=== PATIENT | female | born 1945 | race Caucasian/White ===

== ENCOUNTER 2016-08-31 19:02 | Inpatient (IN) | payer MEDICARE, BC ==
[~2016-08-31] VITALS: Ht 162.6 cm; Wt 79.4 kg
[2016-08-31] MEDS ORDERED: AMIO200T PO (19:14)
[2016-08-31] MEDS ORDERED: ASPI81CH CHEW (19:14)
[2016-08-31] MEDS ORDERED: LISI40TA PO (19:14)
[2016-08-31] MEDS ORDERED: ATOR20TA15 PO (19:14)
[2016-08-31] MEDS ORDERED: CHLO25TA2 PO (19:14)
[2016-08-31 19:15] VITALS: BP 115/68; PULSE 106; RESP 24; TEMP 99.2; O2SAT 94
[2016-08-31] MEDS ORDERED: SODIUM CHLOR 0.9% 1000 ML INJ 1,000 ML IV SCH (19:30)
[2016-08-31] MEDS ORDERED: LANTUS2P SQ (19:31)
--- NOTE | 2016-08-31 19:32 | PD ---
HPI Chief Complaint: General Weakness Time Seen by Provider: 19:17 Travel History International Travel<30 days: No Contact w/Intl Traveler<30days: No Traveled to known affect area: No History of Present Illness HPI 71-year-old female complains of generalized malaise and weakness, poor appetite , cough fever chills. Patient states that the symptoms started a week ago. Patient denies any headache. Patient denies any visual change. Patient denies any neck pain. Patient states that the cough is mild intermittent dry cough. Patient denies any chest pain or shortness of breath. Patient denies abdominal pain. Patient states that she has intermittent nausea vomiting. Patient denies any dysuria or frequency. Patient denies any vaginal discharge or bleeding. Patient denies any back pain. Patient has history hypertension, diabetes, dyslipidemia. Patient is a nonsmoker. Patient states that she had poor appetite for the past week. Patient has history of atrial fibrillation. 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 PFSH Social History Tobacco Use: No Allergies-Medications (Allergen,Severity, Reaction): Coded Allergies: Reglan (Verified Allergy, Intermediate, 08/31/16) Reported Meds & Prescriptions Reported Meds & Active Scripts Active Reported Lantus Inj (Insulin Glargine) 1,000 Unit/10 Ml Vial 18 Units SQ HS Chlorthalidone 25 Mg Tab 25 Mg PO DAILY Amiodarone (Amiodarone HCl) 200 Mg Tab 200 Mg PO DAILY Lisinopril 40 Mg Tab 40 Mg PO DAILY Atorvastatin (Atorvastatin Calcium) 20 Mg Tab 20 Mg PO HS Aspirin 81 Mg Chew 81 Mg CHEW DAILY Review of Systems General / Constitutional: Positive: Fever, Chills Eyes: No: Visual changes HENT: No: Headaches Cardiovascular: No: Chest Pain or Discomfort Respiratory: Positive: Cough, No: Shortness of Breath Gastrointestinal: No: Abdominal Pain Genitourinary: No: Dysuria Musculoskeletal: No: Pain Skin: No Rash Neurologic: No: Weakness Psychiatric: No: Depression Endocrine: No: Polydipsia Hematologic/Lymphatic: No: Easy Bruising Physical Exam Narrative GENERAL: Well-nourished, well-developed patient. SKIN: Warm and dry. HEAD: Normocephalic. EYES: No scleral icterus. No injection or drainage. NECK: Supple, trachea midline. No JVD or lymphadenopathy. CARDIOVASCULAR: Irregularly irregular rate and rhythm without murmurs, gallops, or rubs. RESPIRATORY: Breath sounds equal bilaterally. No accessory muscle use. GASTROINTESTINAL: Abdomen soft, non-tender, nondistended. MUSCULOSKELETAL: No cyanosis, or edema. BACK: Nontender without obvious deformity. No CVA tenderness. Neurologic exam: Patient is awake and alert oriented to place and person. Patient moves all extremity well. No obvious focal neurological deficit. Data Data Last Documented VS Vital Signs Date Time Temp Pulse Resp B/P Pulse Ox O2 Delivery O2 Flow Rate FiO2 08/31/16 20:52 Room Air 08/31/16:15 99.2 106 24 115/68 94 Orders Electrocardiogram (08/31/16:25) Complete Blood Count With Diff (08/31/16:) Comprehensive Metabolic Panel (08/31/16) Creatine Kinase (Cpk) (08/31/16:25) Troponin I (08/31/16:25) B-Type Natriuretic Peptide (08/31/16:) Prothrombin Time / Inr (Pt) (08/31/16:) Act Partial Throm Time (Ptt) (08/31/16:25) Blood Culture (08/31/16:25) Urinalysis - C+S If Indicated (08/31/16:25) Cath For Specimen (08/31/16:) Thyroid Stimulating Hormone (08/31/16:25) Influenzae A/B Antigen (08/31/16:25) Chest, Single Ap (08/31/16:25) Iv Access Insert/Monitor (08/31/16:25) Ecg Monitoring (08/31/16:25) Oximetry (08/31/16:25) Sodium Chlor 0.9% 1000 Ml Inj (Ns 1000 M (08/31/16 19:30) Beta Hydroxybutyrate (Acetone) (08/31/16 19:10) Urine Culture (08/31/16 20:00) Ceftriaxone Inj (Rocephin Inj) (08/31/16 21:00) Vancomycin Inj (Vancomycin Inj) (08/31/16 21:00) Admit Order (Ed Use Only) (08/31/16 20:58) Ns + Kcl 20 Meq Inj (Ns + Kcl 20 Meq Inj (08/31/16 21:00) Potassium Chloride (Kcl) (08/31/16 21:00) Labs Laboratory Tests Test 08/31/16 08/31/16 19:10 20:00 White Blood Count 28.0 TH/MM3 Red Blood Count 4.78 MIL/MM3 Hemoglobin 14.4 GM/DL Hematocrit 42.8 % Mean Corpuscular Volume 89.6 FL Mean Corpuscular Hemoglobin 30.1 PG Mean Corpuscular Hemoglobin 33.6 % Concent Red Cell Distribution Width 12.9 % Platelet Count 156 TH/MM3 Mean Platelet Volume 8.4 FL Neutrophils (%) (Auto) 93.2 % Lymphocytes (%) (Auto) 1.1 % Monocytes (%) (Auto) 5.4 % Eosinophils (%) (Auto) 0.1 % Basophils (%) (Auto) 0.2 % Neutrophils # (Auto) 26.1 TH/MM3 Lymphocytes # (Auto) 0.3 TH/MM3 Monocytes # (Auto) 1.5 TH/MM3 Eosinophils # (Auto) 0.0 TH/MM3 Basophils # (Auto) 0.1 TH/MM3 CBC Comment AUTO DIFF Differential Comment AUTO DIFF CONFIRMED Platelet Estimate NORMAL Platelet Morphology Comment CLUMPED Red Cell Morphology Comment NORMAL Prothrombin Time 10.5 SEC Prothromb Time International 1.0 RATIO Ratio Activated Partial 28.2 SEC Thromboplast Time Sodium Level 127 MEQ/L Potassium Level 3.1 MEQ/L Chloride Level 88 MEQ/L Carbon Dioxide Level 26.1 MEQ/L Anion Gap 13 MEQ/L Blood Urea Nitrogen 33 MG/DL Creatinine 2.00 MG/DL Estimat Glomerular Filtration 25 ML/MIN Rate Random Glucose 275 MG/DL Calcium Level 8.7 MG/DL Total Bilirubin 0.8 MG/DL Aspartate Amino Transf 30 U/L (AST/SGOT) Alanine Aminotransferase 23 U/L (ALT/SGPT) Alkaline Phosphatase 153 U/L Total Creatine Kinase 91 U/L Troponin I 0.81 NG/ML B-Type Natriuretic Peptide 1092 PG/ML Total Protein 6.5 GM/DL Albumin 2.2 GM/DL Thyroid Stimulating Hormone 1.480 uIU/ML 3rd Gen B-Hydroxybutyrate 0.19 MMOL/L Urine Collection Type CATH Urine Color YELLOW Urine Turbidity MOD Urine pH 5.5 Urine Specific [place] 1.011 Urine Protein 100 mg/dL Urine Glucose (UA) 500 mg/dL Urine Ketones NEG mg/dL Urine Occult Blood LARGE Urine Nitrite NEG Urine Bilirubin NEG Urine Leukocyte Esterase SMALL Urine RBC 4-9 /hpf Urine WBC 25-49 /hpf Urine WBC Clumps RARE Urine Squamous Epithelial 0-5 /hpf Cells Urine Bacteria MANY /hpf Microscopic Urinalysis Comment CATH-CULTURE IND MDM Medical Decision Making Medical Screen Exam Complete: Yes Emergency Medical Condition: Yes Interpretation(s) 5 PM. EKG shows atrial fibrillation with rate 97. Right bundle-branch block. Chest x-ray shows no acute consolidation. CBC WBC 28,000. 93 neutrophil. Sodium 127. Potassium 3.1. Chloride 88. BUN 33. Creatinine 2.0. GFR 25. Glucose 275. Troponin 0.81. BNP 1092. UA positive with WBC and bacteria. Beta hydroxy butyrate 0.19. Differential Diagnosis Differential diagnosis including viral syndrome, electrolyte abnormality, dehydration, pneumonia, UTI, OK, sepsis. Narrative Course 71-year-old female with generalized malaise and weakness, cough, fever chills. Normal saline solution 1 25 cc an hour. IV fluid changed to normal saline solution with 20 mEq KCl per liter at 70 cc an hour. KCl 40 mEq by mouth given. Rocephin 1 g IV. Vancomycin 1 g IV. Diagnosis Primary Impression: UTI (urinary tract infection) Qualified Code: N30.00 - Acute cystitis without hematuria Additional Impressions: Sepsis Qualified Code: A41.9 - Sepsis, due to unspecified organism Hyponatremia Hypokalemia Renal insufficiency Hyperglycemia Ramiro Fragoso MD Aug 31, 2016 19:32
[2016-08-31 19:59] LABS: AUTOMATED NEUTROPHIL # 26.1 TH/MM3 (1.8-7.7); BASOPHIL # 0.1 TH/MM3 (0-0.2); BASOPHIL % 0.2 % (0.0-2.0); EOSINOPHIL % 0.1 % (0.0-4.0); HEMATOCRIT 42.8 % (35.0-46.0); LYMPH % 1.1 % (9.0-44.0); LYMPHOCYTE # 0.3 TH/MM3 (1.0-4.8); MEAN CELL VOLUME 89.6 FL (80.0-100.0); MEAN CORPUSCULAR HEMOGLOBIN 30.1 PG (27.0-34.0); MEAN CORPUSCULAR HGB CONC 33.6 % (32.0-36.0); MONO % 5.4 % (0.0-8.0); NEUT % 93.2 % (16.0-70.0); PLATELET COUNT 156 TH/MM3 (150-450); RED BLOOD COUNT 4.78 MIL/MM3 (4.00-5.30); RED CELL DISTRIBUTION WIDTH 12.9 % (11.6-17.2)
[2016-08-31 20:01] LABS: HEMO FLAGS AUTO DIFF
[2016-08-31 20:05] LABS: BLOOD, URINE LARGE (NEG); GLUCOSE,URINE 500 mg/dL (NEG); KETONE, URINE NEG (NEG); NITRITE,URINE NEG (NEG); PH, URINE 5.5 (5.0-8.5)
[2016-08-31 20:11] LABS: CHLORIDE 88 MEQ/L (98-107); POTASSIUM 3.1 MEQ/L (3.5-5.1); SODIUM (NA) 127 MEQ/L (136-145)
[2016-08-31 20:16] LABS: ANION GAP 13 MEQ/L (5-15); BICARBONATE 26.1 MEQ/L (21.0-32.0); BLOOD UREA NITROGEN 33 MG/DL (7-18)
[2016-08-31 20:17] LABS: APTT (PATIENT) 28.2 SEC (24.3-30.1); PROTHROMBIN TIME - PATIENT 10.5 SEC (9.8-11.6)
[2016-08-31 20:18] LABS: ALT (GPT) 23 U/L (10-53)
[2016-08-31 20:19] LABS: METHOD OF COLLECTION CATH; URINE COLOR YELLOW (YELLW/STRAW)
[2016-08-31 20:19] LABS: AST (GOT) 30 U/L (15-37); GLOMERULAR FILTRATION RATE 25 ML/MIN (>89)
[2016-08-31 20:20] LABS: TOTAL BILIRUBIN ADULT 0.8 MG/DL (0.2-1.0)
[2016-08-31 20:21] LABS: BACTERIA, URINE MANY /hpf; COMMENT (UR) CATH-CULTURE IND; CULTURE IF INDICATED CATH CULTURE IND; SQUAMOUS EPITHELIAL CELL URINE 0-5 /hpf (0-5)
[2016-08-31 20:22] LABS: ALKALINE PHOSPHATASE 153 U/L (45-117)
[2016-08-31 20:33] LABS: CREATINE KINASE 91 U/L (26-192)
[2016-08-31 20:34] LABS: BETA-HYDROXYBUTYRATE 0.19 MMOL/L (0.00-0.39)
--- NOTE | 2016-08-31 20:35 | RADHPO ---
EXAM DATE/TIME: 08/31/2016 19:59 [facility] COMPARISON: No previous studies available for comparison. INDICATIONS : Weakness / fever. MEDICAL HISTORY : Diabetes mellitus type II. Hypertension SURGICAL HISTORY : Appendectomy. ENCOUNTER: Initial ACUITY: 1 day PAIN SCORE: 7/10 LOCATION: Bilateral chest FINDINGS: A single view of the chest demonstrates the lungs to be symmetrically aerated without evidence of mas s, infiltrate or effusion. The cardiomediastinal contours are unremarkable. Thoracic aorta is mildl y tortuous/atherosclerotic. Osseous structures are intact. CONCLUSION: No evidence of acute cardiopulmonary disease. Delfino Russo MD on August 31, 2016 at 20:33 Board Certified Radiologist. This report was verified electronically.
[2016-08-31 20:41] LABS: PLATELET ESTIMATE SMEAR NORMAL (NORMAL); PLATELET MORPHOLOGY CLUMPED (NORMAL); SCAN/DIFF AUTO DIFF CONFIRMED
[2016-08-31] MEDS ORDERED: NALOXONE HCL 0.4 MG/ML AMP IV PRN (21:00)
[2016-08-31] MEDS ORDERED: ONDANSETRON HCL 4 MG/2 ML VIAL IVP PRN (21:00)
[2016-08-31] MEDS ORDERED: Vancomycin Consult Pharmacy 1 EA OTHER SCH (21:00)
[2016-08-31] MEDS ORDERED: ACETAMINOPHEN 325 MG TAB PO PRN (21:00)
[2016-08-31] MEDS ORDERED: VANCOMYCIN INJ 1,000 MG in SODIUM CHLOR 0.9% 250 ML INJ 250 ML IV ONE (21:00)
[2016-08-31] MEDS: NS + KCL 20 MEQ INJ 1,000 ML IV SCH ×2 (21:00→23:05)
[2016-08-31] MEDS ORDERED: POTASSIUM CHLORIDE 20 MEQ CONTROLLED RELEASE TAB PO ONE (21:00)
[2016-08-31] MEDS ORDERED: cefTRIAXone INJ 1,000 MG in SODIUM CHLORIDE 0.9% INJ 100 ML IV ONE (21:00)
[2016-08-31 21:03] VITALS: BP 112/63; PULSE 96; RESP 20; O2SAT 95
[2016-08-31] MEDS: ENOXAPARIN SODIUM 40 MG/0.4 ML SYRINGE SQ SCH (22:05)
[2016-09-01] VITALS (9 sets, daily range): BP systolic 104–127; BP diastolic 62–80; PULSE 86–110; RESP 16–20; TEMP 98.1–99.3; O2SAT 93–100
[2016-09-01] MEDS ORDERED: DEXTROSE 50% IN WATER 50 ML VIAL(D50) IV PUSH PRN
[2016-09-01] MEDS ORDERED: GLUCAGON 1 MG/ML VIAL OTHER PRN
[2016-09-01] MEDS ORDERED: INSULIN ASPART 1,000 UNITS/10 ML VIAL SQ ONE (00:30)
[2016-09-01] MEDS: INSULIN ASPART SUPPLEMENTAL SCALE SQ SCH ×5 (01:00→21:32)
[2016-09-01] MEDS ORDERED: INSULIN ASPART SUPPLEMENTAL SCALE SQ SCH (07:00)
[2016-09-01 08:20] LABS: AUTOMATED NEUTROPHIL # 23.1 TH/MM3 (1.8-7.7); BASOPHIL # 0.1 TH/MM3 (0-0.2); BASOPHIL % 0.4 % (0.0-2.0); EOSINOPHIL % 0.1 % (0.0-4.0); HEMATOCRIT 39.4 % (35.0-46.0); LYMPH % 2.4 % (9.0-44.0); LYMPHOCYTE # 0.6 TH/MM3 (1.0-4.8); MEAN CELL VOLUME 90.1 FL (80.0-100.0); MEAN CORPUSCULAR HEMOGLOBIN 30.1 PG (27.0-34.0); MEAN CORPUSCULAR HGB CONC 33.4 % (32.0-36.0); NEUT % 90.1 % (16.0-70.0); PLATELET COUNT 152 TH/MM3 (150-450); RED BLOOD COUNT 4.37 MIL/MM3 (4.00-5.30); RED CELL DISTRIBUTION WIDTH 13.1 % (11.6-17.2); WHITE BLOOD COUNT 25.6 TH/MM3 (4.0-11.0)
[2016-09-01 08:21] LABS: HEMO FLAGS AUTO DIFF
--- NOTE | 2016-09-01 08:34 | MB ---
cc: LINDA DOMINIQUE MD DATE OF CONSULTATION: 09/01/2016 REASON FOR CONSULTATION Weakness and elevated troponin. HISTORY OF PRESENT ILLNESS The patient is a very pleasant 71-year-old woman who lives in [place]. She has a history of atrial fibrillation and approximately 4-5 years ago had a hemorrhagic CVA while on warfarin, so this was discontinued and she was put on amiodarone. She is visiting the area. Over the last week or so she has been having a poor appetite, fevers, chills, malaise and severe generalized weakness. She was brought to the emergency department and found to have acute kidney injury with elevated troponins as well as an elevated BNP. She was also in atrial fibrillation though only at a minimally elevated heart rate. The patient has been given saline and she says she feels much better. She is now asymptomatic denying any residual lightheadedness. She has no chest pain now or recently. No lightheadedness, dizziness or syncope. PAST MEDICAL HISTORY 1. Atrial fibrillation. No longer on anticoagulation due to intracranial hemorrhage. 2. Diabetes. 3. Hypertension. 4. Hyperlipidemia. MEDICATIONS Current medications: 1. Vancomycin. 2. Ceftriaxone. 3. Lipitor. 4. Amiodarone. 5. Aspirin 81 mg daily. 6. Lisinopril 40 mg daily. ALLERGIES REGLAN. PHYSICAL EXAMINATION VITAL SIGNS: Afebrile. Pulse 90, respiratory rate 18, blood pressure 115/87. Satting 100 on two liters. GENERAL: In general, a pleasant woman in no distress. NECK: No JVD. LUNGS: Clear to auscultation bilaterally. CARDIOVASCULAR: Irregularly irregular rhythm with regular rate. No murmurs appreciated. ABDOMEN: Benign. EXTREMITIES: No edema. LABORATORY DATA White count 28, hematocrit 42.8, platelets 156. Sodium 127, potassium 3.1, chloride 88, bicarb 26, BUN 33, creatinine 2.0. Troponin 0.8, 0.65. Urine was consistent with a UTI and urine culture is pending. IMPRESSION Elevated troponin. The patient likely had significant dehydration due to a UTI. She is feeling much better with hydration. Her cardiac enzymes are slightly elevated, likely due to the acute kidney injury and other nonspecific metabolic changes associated with her infection. I think a nuclear stress test is reasonable and I will have that performed here to exclude any major areas of ischemia. Though for only mild ischemia, we would likely treat medically given no cardiac symptoms. Further recommendations will be based on her clinical course, though if her stress test is negative and she feels well after hydration she could potentially be discharged, at least from a cardiac standpoint. Thank you again for the opportunity to participate in this patient's care. MD SHERRY Hernandez/KENIA /6:43 AM /7:17 AM
[2016-09-01 08:42] LABS: ALKALINE PHOSPHATASE 125 U/L (45-117); ALT (GPT) 20 U/L (10-53); ANION GAP 11 MEQ/L (5-15); AST (GOT) 25 U/L (15-37); BICARBONATE 27.4 MEQ/L (21.0-32.0); BLOOD UREA NITROGEN 34 MG/DL (7-18); CHLORIDE 96 MEQ/L (98-107); CREATINE KINASE 63 U/L (26-192); GLOMERULAR FILTRATION RATE 26 ML/MIN (>89); POTASSIUM 3.4 MEQ/L (3.5-5.1); SODIUM (NA) 134 MEQ/L (136-145); TOTAL BILIRUBIN ADULT 0.6 MG/DL (0.2-1.0)
[2016-09-01] MEDS ORDERED: CHLORTHALIDONE 25 MG PO SCH (09:00)
[2016-09-01] MEDS: LISINOPRIL 20 MG TAB PO SCH (09:12)
[2016-09-01] MEDS: ASPIRIN 81 MG CHEW TAB CHEW SCH (09:12)
[2016-09-01] MEDS: AMIODARONE 200 MG TAB PO SCH (09:12)
[2016-09-01] MEDS: CHLORTHALIDONE PO SCH (09:13)
[2016-09-01 09:17] LABS: SCAN/DIFF AUTO DIFF CONFIRMED
[2016-09-01] MEDS: NS + KCL 20 MEQ INJ 1,000 ML IV SCH (09:18)
[2016-09-01] MEDS ORDERED: REGADENOSON INJ 0.4 MG/5 ML SYR IV ONE (09:54)
--- NOTE | 2016-09-01 12:01 | RADHPO ---
EXAM DATE/TIME: 09/01/2016 10:20 [facility] COMPARISON: No previous studies available for comparison. INDICATIONS : Weakness, cough, fever, chills, nausea and vomiting. Elevated troponins. Atrial fibrillation. DOSE: 27.2 mCi Tc99m Myoview at stress. 8.4 mCi Tc99m Myoview at rest. 0.4 mg Lexiscan STRESS SYMPTOMS: Headache. EJECTION FRACTION: 64% MEDICAL HISTORY : Hypertension. Diabetes mellitus type 2. Stroke. SURGICAL HISTORY : Appendectomy. ENCOUNTER: Initial ACUITY: 1 day PAIN SCALE: 0/10 LOCATION: chest TECHNIQUE: The patient underwent pharmacologic stress with infusion of prescribed dose. Continuous ECG tracing was monitored during stress. Gated SPECT imaging was performed after stress and conventional SPECT i maging was performed at rest. The examination was performed on a SPECT/CT scanner, both attenuation and non-corrected datasets were reviewed. FINDINGS: DISTRIBUTION: The maximum perfused segment at stress is in the anterior wall. PERFUSION STUDY: No areas of ischemia are seen. There is matched decreased activity at the inferior lateral wall on st ress and rest images. GATED STUDY: There is intact wall motion and thickening without hypokinetic or dyskinetic segments. CONCLUSION: No areas of ischemia are seen. RISK CATEGORY: Low (<1% Annual Mortality Rate) Delfino Viera MD on September 01, 2016 at 11:56 Board Certified Radiologist. This report was verified electronically.
--- NOTE | 2016-09-01 12:21 | EC ---
Study Study Date:09/01/2016 STUDY CONCLUSIONS SUMMARY - Left ventricle: The cavity size was normal. Wall thickness was normal. Systolic function was mildly reduced. The estimated ejection fraction was in the range of 45% to 50%. Wall motion was normal; there were no regional wall motion abnormalities. - Pulmonary arteries: PA peak pressure: 38mm Hg (S). - Pericardium, extracardiac: A trivial pericardial effusion was identified. If LV function is below 40, please consider prescribing an ACEI or ARB or document rationale for non-use. PROCEDURE DATA STUDY STATUS: Elective. Procedure: Transthoracic echocardiography. Image quality was good. Scanning was performed from the parasternal, apical, and subcostal acoustic windows. Study completion: The patient tolerated the procedure well. Transthoracic echocardiography. M-mode, complete 2D, complete spectral Doppler, and color Doppler. Patient status: Inpatient. CARDIAC ANATOMY LEFT VENTRICLE: The cavity size was normal. Wall thickness was normal. Systolic function was mildly reduced. The estimated ejection fraction was in the range of 45% to 50%. Wall motion was normal; there were no regional wall motion abnormalities. AORTIC VALVE: Trileaflet; normal thickness leaflets. Doppler: Transvalvular velocity was within the normal range. There was no stenosis. No regurgitation. Peak gradient: 16mm Hg (S). AORTA: Aortic root: The aortic root was normal in size. MITRAL VALVE: Structurally normal valve. Doppler: Transvalvular velocity was within the normal range. There was no evidence for stenosis. Trace regurgitation. Peak gradient: 3mm Hg (D). LEFT ATRIUM: The atrium was normal in size. RIGHT VENTRICLE: The cavity size was normal. Wall thickness was normal. PULMONIC VALVE: Doppler: Transvalvular velocity was within the normal range. There was no evidence for stenosis. No regurgitation. TRICUSPID VALVE: Structurally normal valve. Doppler: Transvalvular velocity was within the normal range. No regurgitation. PULMONARY ARTERY: The main pulmonary artery was normal-sized. Systolic pressure was within the normal range. RIGHT ATRIUM: The atrium was normal in size. PERICARDIUM: A trivial pericardial effusion was identified. SYSTEMIC VEINS: Inferior vena cava: The vessel was normal in size. BASIC MEASUREMENTS ADULT Normal Left ventricle LV internal dimension, ED, chordal level, 44.4 mm 43-52 PLAX LV internal dimension, ES, chordal level, 36 mm 23-38 PLAX Fractional shortening, chordal level, PLAX *19 % >29 LV posterior wall thickness, ED 7.16 mm IVS/LVPW ratio, ED *1.42 <1.3 Ventricular septum Septal thickness, ED 10.2 mm Aortic valve Leaflet separation 19 mm 15-26 Left atrium Anterior-posterior dimension 32 mm Right ventricle RV internal dimension, ED, PLAX 22.4 mm 19-38 BASIC MEASUREMENTS ADULT Normal Aortic valve Leaflet separation 19 mm 15-26 Aorta Root diameter, ED 29 mm 20-37 DOPPLER MEASUREMENTS ADULT Normal Main pulmonary artery Pressure, S *38 mm Hg =30 Aortic valve Peak velocity, S 198 cm/s Peak gradient, S 16 mm Hg Mitral valve Peak E-wave velocity 86.6 cm/s Peak A-wave velocity 40 cm/s Peak gradient, D 3 mm Hg Peak E/A ratio 2.2 Tricuspid valve Regurgitant peak velocity 289 cm/s Peak RV-RA gradient, S 33 mm Hg Maximal regurgitant velocity 289 cm/s Systemic veins Estimated CVP 5 mm Hg Right ventricle RV pressure, S *38 mm Hg <30 LEGEND: Mean values are shown as u=mean value. Asterisk (*) hughes values outside specified normal range. Prepared and signed by Serjio Vaughn [id number]
--- NOTE | 2016-09-01 13:25 | HHI.HP ---
[facility] Service [facility] Primary Care Physician Non-Staff Admission Diagnosis UTI. Sepsis. Hyponatremia. Hypokalemia. Renal sufficiency. Elevated Diagnoses: (1) Sepsis (2) UTI (urinary tract infection) (3) Bacteremia due to Gram-negative bacteria (4) Renal insufficiency (5) Hyponatremia (6) Atrial fibrillation (7) Elevated troponin I measurement (8) Acute systolic congestive heart failure Chief Complaint: Shortness of breath, fatigue Travel History International Travel<30 Days: No Contact w/Intl Traveler <30 Da: No Traveled to Known Affected Are: No Sepsis Criteria SIRS Criteria (2 or more): Heart rate over 90, WBC > 97401, < 4000 or > 10% bands Sepsis Criteria (SIRS+source): Infect source susp/known Criteria Outcome: Meets sepsis criteria History of Present Illness 71 year-old female with a history of diabetes, hyperlipidemia, hypertension, atrial fibrillation presented to the ED yesterday for evaluation of 1 week history of generalized fatigue, malaise and poor appetite 1 week duration. Patient also reported mild intermittent dry cough as well as nausea and vomiting. She denies any chest pain and has no GI bleed. She has a history of atrial fibrillation however secondary to recent intracranial hemorrhage and she is no longer on oral anticoagulation. Patient was found to have elevated troponin I for which cardiology was consulted. Although patient denies any dysuria or urinary frequency she has abnormal UA Review of Systems Other 12 systems reviewed and are negative except for the one mentioned in the history of present illness Past Family Social History Past Medical History Diabetes type 2 Hyperlipidemia Hypertension Atrial fibrillation Past Surgical History Abdominal surgeries Reported Medications Lantus Inj (Insulin Glargine) 1,000 Unit/10 Ml Vial 18 Units SQ HS Chlorthalidone 25 Mg Tab 25 Mg PO DAILY Amiodarone (Amiodarone HCl) 200 Mg Tab 200 Mg PO DAILY Lisinopril 40 Mg Tab 40 Mg PO DAILY Atorvastatin (Atorvastatin Calcium) 20 Mg Tab 20 Mg PO HS Aspirin 81 Mg Chew 81 Mg CHEW DAILY Allergies: Coded Allergies: Genarolan (Verified Allergy, Intermediate, 08/31/16) Family History Mother had history of hyperlipidemia Social History She denies tobacco, alcohol or easy drug intake Physical Exam Vital Signs Vital Signs Date Time Temp Pulse Resp B/P Pulse Ox O2 Delivery O2 Flow Rate FiO2 09/01/16 08:00 98.6 90 16 116/71 96 09/01/16 04:00 98.1 90 18 115/80 100 09/01/16 03:28 110 09/01/16 01:00 99.3 90 18 107/79 98 09/01/16 00:41 91 104/62 97 Room Air 09/01/16 00:41 97 21 08/31/16 21:03 96 20 112/63 95 Room Air 08/31/16 20:52 Room Air 08/31/16 19:15 99.2 106 24 115/68 94 Physical Exam GENERAL: This is a well-nourished, well-developed patient, in no apparent distress. SKIN: No rashes, ecchymoses or lesions. Cool and dry. HEAD: Atraumatic. Normocephalic. No temporal or scalp tenderness. EYES: Pupils equal round and reactive. Extraocular motions intact. No scleral icterus. No injection or drainage. ENT: Nose without bleeding, purulent drainage or septal hematoma. Throat without erythema, tonsillar hypertrophy or exudate. Uvula midline. Airway patent. NECK: Trachea midline. No JVD or lymphadenopathy. Supple, nontender, no meningeal signs. CARDIOVASCULAR: Regular rate and rhythm without murmurs, gallops, or rubs. RESPIRATORY: Clear to auscultation. Breath sounds equal bilaterally. No wheezes , rales, or rhonchi. GASTROINTESTINAL: Abdomen soft, non-tender, nondistended. No hepato-splenomegaly , or palpable masses. No guarding. MUSCULOSKELETAL: Extremities without clubbing, cyanosis, or edema. No joint tenderness, effusion, or edema noted. No calf tenderness. Negative Homans sign bilaterally. NEUROLOGICAL: Awake and alert. Cranial nerves II through XII intact. Motor and sensory grossly within normal limits. Five out of 5 muscle strength in all muscle groups. Normal speech. Laboratory Laboratory Tests Test 08/31/16 08/31/16 09/01/16 09/01/16 19:10 20:00 01:30 07:50 Prothrombin Time 10.5 Prothromb Time International 1.0 Ratio Activated Partial 28.2 Thromboplast Time Sodium Level 127 134 Potassium Level 3.1 3.4 Chloride Level 88 96 Carbon Dioxide Level 26.1 27.4 Anion Gap 13 11 Blood Urea Nitrogen 33 34 Creatinine 2.00 1.90 Estimat Glomerular Filtration 25 26 Rate Random Glucose 275 166 Calcium Level 8.7 8.4 Total Bilirubin 0.8 0.6 Aspartate Amino Transf 30 25 (AST/SGOT) Alanine Aminotransferase 23 20 (ALT/SGPT) Alkaline Phosphatase 153 125 Total Creatine Kinase 91 75 63 Troponin I 0.81 0.65 0.56 B-Type Natriuretic Peptide 1092 Total Protein 6.5 5.8 Albumin 2.2 1.9 Thyroid Stimulating Hormone 1.480 3rd Gen B-Hydroxybutyrate 0.19 White Blood Count 28.0 25.6 Red Blood Count 4.78 4.37 Hemoglobin 14.4 13.2 Hematocrit 42.8 39.4 Mean Corpuscular Volume 89.6 90.1 Mean Corpuscular Hemoglobin 30.1 30.1 Mean Corpuscular Hemoglobin 33.6 33.4 Concent Red Cell Distribution Width 12.9 13.1 Platelet Count 156 152 Mean Platelet Volume 8.4 8.2 Neutrophils (%) (Auto) 93.2 90.1 Lymphocytes (%) (Auto) 1.1 2.4 Monocytes (%) (Auto) 5.4 7.0 Eosinophils (%) (Auto) 0.1 0.1 Basophils (%) (Auto) 0.2 0.4 Neutrophils # (Auto) 26.1 23.1 Lymphocytes # (Auto) 0.3 0.6 Monocytes # (Auto) 1.5 1.8 Eosinophils # (Auto) 0.0 0.0 Basophils # (Auto) 0.1 0.1 CBC Comment AUTO DIFF AUTO DIFF Differential Comment AUTO DIFF AUTO DIFF CONFIRMED CONFIRMED Platelet Estimate NORMAL Platelet Morphology Comment CLUMPED Red Cell Morphology Comment NORMAL Urine Collection Type CATH Urine Color YELLOW Urine Turbidity MOD Urine pH 5.5 Urine Specific [place] 1.011 Urine Protein 100 Urine Glucose (UA) 500 Urine Ketones NEG Urine Occult Blood LARGE Urine Nitrite NEG Urine Bilirubin NEG Urine Leukocyte Esterase SMALL Urine RBC 4-9 Urine WBC 25-49 Urine WBC Clumps RARE Urine Squamous Epithelial 0-5 Cells Urine Bacteria MANY Microscopic Urinalysis Comment CATH-CULTURE IND Date/Time Procedure Status Source Growth 08/31/16 20:00 Urine Culture - Preliminary Resulted Urine Catheterized Urine Gram Negative Esvin 08/31/16 19:40 Influenza Types A,B Antigen (JEREMY) - Final Complete Nasal Washing NEGATIVE FOR FLU A AND B ANTIGEN.... 08/31/16 19:20 Aerobic Blood Culture - Preliminary Resulted Blood Peripheral Escherichia Coli 08/31/16 19:20 Anaerobic Blood Culture - Preliminary Resulted Gram Negative Esvin Result Diagram: 09/01/16 0750 09/01/16 0750 Assessment and Plan Problem List: (1) Sepsis ICD Code: A41.9 Status: Acute (2) Bacteremia due to Gram-negative bacteria ICD Code: R78.81 Status: Acute (3) UTI (urinary tract infection) ICD Code: N39.0 Status: Acute (4) Elevated troponin I measurement ICD Code: R74.8 Status: Acute (5) Acute systolic congestive heart failure ICD Code: I50.21 Status: Acute (6) Renal insufficiency ICD Code: N28.9 Status: Acute (7) Atrial fibrillation ICD Code: I48.91 Status: Acute (8) Hypokalemia ICD Code: E87.6 Status: Acute Assessment and Plan 71 year-old female with 1-Sepsis: Likely secondary to UTI, she meets sepsis criteria with Heart rate over 90, WBC > 60134, < 4000 or > 10% bands.. Currently on vancomycin and Rocephin IV pending culture report. Check lactic acid 2-Bacteremia:+4 BC gram-negative rods, repeat culture and consult infectious disease specialist. Continue with vancomycin and Rocephin IV pending culture reports 3-UTI: Currently on Rocephin IV pending urine culture 4-Elevated troponin I: Likely secondary to infectious process. Lexiscan stress test ruled out ischemia. Appreciate input from cardiology 5-History of atrial fibrillation: Continue amiodarone. Not on any oral anticoagulation secondary to previous history of intracranial Hemorrhage. Telemetry monitoring 6-Acute systolic CHF: 2-D echo with EF 45-50%, start Bumex IV and continue with JAZMIN inhibitor. 7-Diabetes type 2: Currently on long-acting basal insulin, sliding-scale insulin and check hemoglobin A1c 8-Hyperlipidemia: Continue statin 9-Hypokalemia: Replace electrolyte and monitor 10-Acute renal failure: Likely secondary to dehydration, patient currently on IV fluid however secondary to acute systolic CHF with Hep-Lock fluid and monitor BUN and creatinine. Avoid all nephrotoxic drugs 11-DVT prophylaxis: Lovenox Code Status Full code Discussed Condition With Patient Physician Certification 2 Midnight Certification Type: Admission for Inpatient Services Order for Inpatient Services The services are ordered in accordance with Medicare regulations or non- Medicare payer requirements, as applicable. In the case of services not specified as inpatient-only, they are appropriately provided as inpatient services in accordance with the 2-midnight benchmark. Estimated LOS (days): 2 days is the estimated time the patient will need to remain in the hospital, assuming treatment plan goals are met and no additional complications. Post-Hospital Plan: Not yet determined Problem Qualifiers (1) Sepsis: Qualified Code: A41.9 - Sepsis, due to unspecified organism (2) UTI (urinary tract infection): Qualified Code: N30.00 - Acute cystitis without hematuria Sridhar Eid MD Sep 01, 2016 13:25
[2016-09-01] MEDS ORDERED: RESP: ALBUTEROL 2.5 MG/IPRATROPIUM 0.5 MG NEB (PRN) NEB (13:30)
--- NOTE | 2016-09-01 15:01 | EKG ---
Date Performed: 09/01/2016 Time Performed: 08:47:34 PTAGE: 71 years EKG: Atrial fibrillation Leftward axis Right bundle branch block Inferior/lateral T wave changes are nonspecific Low QRS voltages in precordial leads Abnormal ECG Compared to prior tracing no signi ficant change PREVIOUS TRACING : 09/01/2016 01.33 DOCTOR: Stella Harrison Interpretating Date/Time 09/01/2016 14:54:16
--- NOTE | 2016-09-01 15:41 | EKG ---
Date Performed: 09/01/2016 Time Performed: 01:33:56 PTAGE: 71 years EKG: Atrial fibrillation with a controlled v. response Right bundle branch block Inferior T wave changes are nonspecific Compared to prior tracing no significant serial change Abnormal ECG PREVIOUS TRACING : 08/31/2016 19.44 DOCTOR: Stella Harrison Interpretating Date/Time 09/01/2016 15:40:10
--- NOTE | 2016-09-01 15:41 | EKG ---
Date Performed: 08/31/2016 Time Performed: 19:44:30 PTAGE: 71 years EKG: Atrial fibrillation RBBB with left anterior fascicular block Questionable Inferior infarct - age undetermined Lateral ST-T changes may be due to myocardial ischemia Low QRS voltages in precord ial leads Abnormal ECG NO PREVIOUS TRACING FOR COMPARISON DOCTOR: Stella Harrison Interpretating Date/Time 09/01/2016 15:39:37
[2016-09-01] MEDS: BUMETANIDE INJ 1 MG/4 ML VIAL IV PUSH SCH (17:02)
[2016-09-01] MEDS: cefTRIAXone INJ 1,000 MG in SODIUM CHLORIDE 0.9% INJ 100 ML IV SCH (21:32)
[2016-09-01] MEDS: ENOXAPARIN SODIUM 40 MG/0.4 ML SYRINGE SQ SCH (21:38)
[2016-09-01] MEDS: INSULIN DETEMIR 100 UNITS/ML VIAL SQ SCH (21:39)
[2016-09-01] MEDS: ATORVASTATIN 20 MG TAB PO SCH (21:39)
[2016-09-02] VITALS (9 sets, daily range): BP systolic 108–145; BP diastolic 59–78; PULSE 85–106; RESP 16–18; TEMP 97–99.2; O2SAT 95–99
[2016-09-02] MEDS ORDERED: VANCOMYCIN INJ 1,250 MG in SODIUM CHLOR 0.9% 250 ML INJ 250 ML IV SCH ×2
[2016-09-02 06:17] LABS: BASOPHIL % 0.1 % (0.0-2.0); EOSINOPHIL # 0.1 TH/MM3 (0-0.4); EOSINOPHIL % 0.4 % (0.0-4.0); LYMPH % 3.6 % (9.0-44.0); LYMPHOCYTE # 0.7 TH/MM3 (1.0-4.8); MEAN CELL VOLUME 90.6 FL (80.0-100.0); MEAN CORPUSCULAR HEMOGLOBIN 30.8 PG (27.0-34.0); NEUT % 82.9 % (16.0-70.0); PLATELET COUNT 163 TH/MM3 (150-450); RED BLOOD COUNT 4.08 MIL/MM3 (4.00-5.30); WHITE BLOOD COUNT 18.2 TH/MM3 (4.0-11.0)
[2016-09-02 06:34] LABS: HEMO FLAGS AUTO DIFF
[2016-09-02 06:41] LABS: ANION GAP 10 MEQ/L (5-15); BICARBONATE 27.2 MEQ/L (21.0-32.0); BLOOD UREA NITROGEN 37 MG/DL (7-18); CHLORIDE 100 MEQ/L (98-107); GLOMERULAR FILTRATION RATE 28 ML/MIN (>89); SODIUM (NA) 137 MEQ/L (136-145)
[2016-09-02] MEDS: INSULIN ASPART SUPPLEMENTAL SCALE SQ SCH ×4 (06:41→21:55)
[2016-09-02 07:03] LABS: POTASSIUM 2.8 MEQ/L (3.5-5.1)
[2016-09-02] MEDS ORDERED: POTASSIUM CHLORIDE 10 MEQ CONTROLLED RELEASE TAB PO ONE ×2 (07:30→08:00)
--- NOTE | 2016-09-02 07:48 | PD.CONS ---
History of Present Illness Service Infectious disease Consult Requested By Dr Sridhar Eid Reason for Consult 71 y/o with sepsis UTI now with bacteremia Primary Care Physician Non-Staff Diagnoses: (1) Bacteremia due to Gram-negative bacteria (2) UTI (urinary tract infection) (3) Sepsis (4) Renal insufficiency History of Present Illness Patient was admitted with a 1 week h/o generalized weakness, nausea, vomiting- loss of appetite and subjective fever with chills. No diarrhea. Some abdominal discomfort- denies any urinary symptoms and says she never gets UTIs. She feels better today and is anxious to go home. Review of Systems Constitutional: COMPLAINS OF: Fever, Chills, Change in appetite Endocrine: DENIES: Polydipsia, Polyuria Eyes: DENIES: Blurred vision, Diplopia, Eye inflammation Ears, nose, mouth, throat: DENIES: Tinnitus, Hearing loss Respiratory: COMPLAINS OF: Cough, DENIES: Hemoptysis, Sputum production, Shortness of breath Cardiovascular: DENIES: Chest pain, Palpitations, Dyspnea on Exertion Gastrointestinal: COMPLAINS OF: Nausea, Vomiting, Anorexia, DENIES: Difficulty Swallowing Genitourinary: DENIES: Urgency, Hematuria, Dysuria Musculoskeletal: DENIES: Joint pain, Muscle aches, Back pain Integumentary: DENIES: Abnormal pigmentation, Pruritus Neurologic: DENIES: Headache, Seizures Psychiatric: DENIES: Anxiety, Confusion Past Family Social History Allergies: Coded Allergies: Reglan (Verified Allergy, Intermediate, 08/31/16) Past Medical History Diabetes type 2 Hyperlipidemia Hypertension Atrial fibrillation H/o hemorrhagic stroke some years ago. Past Surgical History Abdominal surgeries Reported Medications Lantus Inj (Insulin Glargine) 1,000 Unit/10 Ml Vial 18 Units SQ HS Chlorthalidone 25 Mg Tab 25 Mg PO DAILY Amiodarone (Amiodarone HCl) 200 Mg Tab 200 Mg PO DAILY Lisinopril 40 Mg Tab 40 Mg PO DAILY Atorvastatin (Atorvastatin Calcium) 20 Mg Tab 20 Mg PO HS Aspirin 81 Mg Chew 81 Mg CHEW DAILY Allergies: Coded Allergies: Reglan (Verified Allergy, Intermediate, 08/31/16) Family History Mother had history of hyperlipidemia Social History She denies tobacco, alcohol or easy drug intake Physical Exam Vital Signs Vital Signs Date Time Temp Pulse Resp B/P Pulse Ox O2 Delivery O2 Flow Rate FiO2 09/02/16 04:00 99.2 94 16 108/75 99 09/02/16 00:00 98.6 100 18 113/75 96 09/01/16 20:54 95 21 09/01/16 20:00 100 09/01/16 20:00 98.8 89 20 112/69 93 09/01/16 16:00 99.3 91 16 127/73 95 09/01/16 12:00 98.7 88 16 120/71 96 09/01/16 08:00 98.6 90 16 116/71 96 09/01/16 08:00 86 Physical Exam GENERAL: This is a patient in no apparent distress. Sleepy. SKIN: No rashes, ecchymoses or lesions. Cool and dry. HEAD: Atraumatic. Normocephalic. No temporal or scalp tenderness. EYES: Pupils equal round and reactive. Extraocular motions intact. No scleral icterus. No injection or drainage. ENT: Nose without bleeding, purulent drainage or septal hematoma. Throat without erythema, tonsillar hypertrophy or exudate. Uvula midline. Airway patent. NECK: Trachea midline. No JVD or lymphadenopathy. Supple, nontender, no meningeal signs. CARDIOVASCULAR: Regular rate and rhythm without murmurs, gallops, or rubs. RESPIRATORY: Clear to auscultation. Breath sounds equal bilaterally. No wheezes , rales, or rhonchi. GASTROINTESTINAL: Abdomen soft, non-tender, nondistended. No hepato-splenomegaly , or palpable masses. No guarding. MUSCULOSKELETAL: Extremities without clubbing, cyanosis, or edema. No joint tenderness, effusion, or edema noted. No calf tenderness. Negative Homans sign bilaterally. NEUROLOGICAL: Awake and alert. Cranial nerves II through XII intact. Motor and sensory grossly within normal limits. Five out of 5 muscle strength in all muscle groups. Normal speech. Laboratory Laboratory Tests Test 09/01/16 09/01/16 09/02/16 07:50 14:30 05:33 White Blood Count 25.6 18.2 Red Blood Count 4.37 4.08 Hemoglobin 13.2 12.6 Hematocrit 39.4 37.0 Mean Corpuscular Volume 90.1 90.6 Mean Corpuscular Hemoglobin 30.1 30.8 Mean Corpuscular Hemoglobin 33.4 34.0 Concent Red Cell Distribution Width 13.1 13.0 Platelet Count 152 163 Mean Platelet Volume 8.2 7.9 Neutrophils (%) (Auto) 90.1 82.9 Lymphocytes (%) (Auto) 2.4 3.6 Monocytes (%) (Auto) 7.0 13.0 Eosinophils (%) (Auto) 0.1 0.4 Basophils (%) (Auto) 0.4 0.1 Neutrophils # (Auto) 23.1 15.0 Lymphocytes # (Auto) 0.6 0.7 Monocytes # (Auto) 1.8 2.4 Eosinophils # (Auto) 0.0 0.1 Basophils # (Auto) 0.1 0.0 CBC Comment AUTO DIFF AUTO DIFF Differential Comment AUTO DIFF CONFIRMED Sodium Level 134 137 Potassium Level 3.4 2.8 Chloride Level 96 100 Carbon Dioxide Level 27.4 27.2 Anion Gap 11 10 Blood Urea Nitrogen 34 37 Creatinine 1.90 1.80 Estimat Glomerular Filtration 26 28 Rate Random Glucose 166 105 Calcium Level 8.4 8.3 Total Bilirubin 0.6 Aspartate Amino Transf 25 (AST/SGOT) Alanine Aminotransferase 20 (ALT/SGPT) Alkaline Phosphatase 125 Total Creatine Kinase 63 Troponin I 0.56 Total Protein 5.8 Albumin 1.9 Lactic Acid Level 1.3 Date/Time Procedure Status Source Growth 09/01/16 14:30 Aerobic Blood Culture Received Blood Peripheral Pending 09/01/16 14:30 Anaerobic Blood Culture Received Blood Peripheral Pending 08/31/16 20:00 Urine Culture - Preliminary Resulted Urine Catheterized Urine Gram Negative Esvin 08/31/16 19:40 Influenza Types A,B Antigen (JEREMY) - Final Complete Nasal Washing NEGATIVE FOR FLU A AND B ANTIGEN.... 08/31/16 19:20 Aerobic Blood Culture - Preliminary Resulted Blood Peripheral Escherichia Coli 08/31/16 19:20 Anaerobic Blood Culture - Preliminary Resulted Gram Negative Esvin Result Diagram: 09/02/16 0533 09/02/16 0533 Assessment and Plan Problem List: (1) Sepsis Status: Acute Plan: Follow Blood cultures Source is likely UTI Will check US abdomen Continue IV Ceftriaxone Stop Vancomycin Repeat blood cultures drawn - will need to make sure repeat blood cultures are negative at 24-48hrs before considering discharge. (2) Bacteremia due to Gram-negative bacteria Status: Acute (3) UTI (urinary tract infection) Status: Acute Plan: Re check UAC (4) Renal insufficiency Status: Acute Plan: Improved Problem Qualifiers (1) UTI (urinary tract infection): Qualified Code: N30.00 - Acute cystitis without hematuria (2) Sepsis: Qualified Code: A41.51 - Sepsis due to Escherichia coli Chastity Metz MD Sep 02, 2016 07:48
[2016-09-02 08:00] LABS: PLATELET ESTIMATE SMEAR NORMAL (NORMAL); PLATELET MORPHOLOGY NORMAL (NORMAL); SCAN/DIFF AUTO DIFF CONFIRMED
--- NOTE | 2016-09-02 08:51 | HHI.PR ---
Subjective Remarks Follow-up sepsis/bacteremia/UTI/acute systolic CHF/elevated troponin I 09/02/16-patient seen and examined, reports significant improvement of shortness of breath and generalized weakness. Increased appetite. Currently afebrile. Objective Vitals Vital Signs Date Time Temp Pulse Resp B/P Pulse Ox O2 Delivery O2 Flow Rate FiO2 09/02/16 08:00 98.7 92 18 145/78 99 09/02/16 04:00 99.2 94 16 108/75 99 09/02/16 00:00 98.6 100 18 113/75 96 09/01/16 20:54 95 21 09/01/16 20:00 100 09/01/16 20:00 98.8 89 20 112/69 93 09/01/16 16:00 99.3 91 16 127/73 95 09/01/16 12:00 98.7 88 16 120/71 96 I/O 09/01/16 09/01/16 09/01/16 09/02/16 09/02/16 09/02/16 07:00 15:00 23:00 07:00 15:00 23:00 Intake Total 500 ml Balance 500 ml IV Total 500 ml # Voids 2 Result Diagram: 09/02/16 0533 09/02/16 0533 Imaging Last Impressions Chest X-Ray 08/31/161924 Signed Impressions: Service Date/Time: Wednesday, August 31, 2016 19:59 - CONCLUSION: No evidence of acute cardiopulmonary disease. Delfino Russo MD Objective Remarks GENERAL: NAD SKIN: Warm and dry. HEAD: Normocephalic. EYES: No scleral icterus. No injection or drainage. NECK: Supple, trachea midline. No JVD or lymphadenopathy. CARDIOVASCULAR: Regular rate and rhythm without murmurs, gallops, or rubs. RESPIRATORY: Breath sounds equal bilaterally. No accessory muscle use. GASTROINTESTINAL: Abdomen soft, non-tender, nondistended. MUSCULOSKELETAL: No cyanosis, or edema. BACK: Nontender without obvious deformity. No CVA tenderness. A/P Problem List: (1) Sepsis ICD Code: A41.9 Status: Acute (2) Bacteremia due to Gram-negative bacteria ICD Code: R78.81 Status: Acute (3) UTI (urinary tract infection) ICD Code: N39.0 Status: Acute (4) Elevated troponin I measurement ICD Code: R74.8 Status: Acute (5) Acute systolic congestive heart failure ICD Code: I50.21 Status: Acute (6) Renal insufficiency ICD Code: N28.9 Status: Acute (7) Atrial fibrillation ICD Code: I48.91 Status: Acute (8) Hypokalemia ICD Code: E87.6 Status: Acute Assessment and Plan 71 year-old female with 1-Sepsis: Likely secondary to UTI. Currently on Rocephin IV pending culture report. 2-Bacteremia:+4 BC gram-negative rods, repeat culture pending and appreciate input from infectious disease specialist. Continue with Rocephin IV pending culture reports 3-UTI: Currently on Rocephin IV pending urine culture 4-Elevated troponin I: Likely secondary to infectious process. Lexiscan stress test ruled out ischemia. Appreciate input from cardiology 5-History of atrial fibrillation: Continue amiodarone. Not on any oral anticoagulation secondary to previous history of intracranial Hemorrhage. Telemetry monitoring 6-Acute systolic CHF: 2-D echo with EF 45-50%, continue Bumex IV and continue with JAZMIN inhibitor. 7-Diabetes type 2: Currently on long-acting basal insulin, sliding-scale insulin and hemoglobin A1c pending 8-Hyperlipidemia: Continue statin 9-Hypokalemia: Give Potassium 60meQ x 1 now 10-Acute renal failure: monitor BUN and creatinine. Avoid all nephrotoxic drugs 11-DVT prophylaxis: Lovenox Problem Qualifiers (1) Sepsis: Qualified Code: A41.51 - Sepsis due to Escherichia coli (2) UTI (urinary tract infection): Qualified Code: N30.00 - Acute cystitis without hematuria Sridhar Eid MD Sep 02, 2016 08:51
[2016-09-02] MEDS: POTASSIUM CHLOR 20 MEQ PREMIX 100 ML IV SCH ×2 (09:25→11:45)
[2016-09-02] MEDS: LISINOPRIL 20 MG TAB PO SCH (09:26)
[2016-09-02] MEDS: AMIODARONE 200 MG TAB PO SCH (09:27)
[2016-09-02] MEDS: BUMETANIDE INJ 1 MG/4 ML VIAL IV PUSH SCH (09:27)
[2016-09-02] MEDS: ASPIRIN 81 MG CHEW TAB CHEW SCH (09:27)
[2016-09-02] MEDS: CHLORTHALIDONE PO SCH (09:37)
--- NOTE | 2016-09-02 09:45 | RADHPO ---
EXAM DATE/TIME: 09/02/2016 07:51 [facility] COMPARISON: No previous studies available for comparison. INDICATIONS : Abdominal pain, weakness, nausea and vomiting. MEDICAL HISTORY : Diabetes mellitus type 2. Hypertension. Afib. Stroke. SURGICAL HISTORY : Appendectomy. Craniotomy. ENCOUNTER: Initial ACUITY: 1 day PAIN SCORE: 0/10 LOCATION: Bilateral upper quadrant MEASUREMENTS: LIVER: 13.8 cm length COMMON DUCT: 4 mm RIGHT KIDNEY: 9.6 x 5.9 x 6.3 cm LEFT KIDNEY: 11.5 x 5.5 x 6.8 cm SPLEEN: 8.3 cm length AORTA: 2.3cm maximal FINDINGS: LIVER: Normal echotexture without focal lesion or ductal dilatation. COMMON DUCT: No intraluminal mass or stone visualized. GALLBLADDER: Contains no stones, demonstrates no wall thickening or pericholecystic fluid. There is a 0.5 cm nonmo bile echogenic mass in the gallbladder without shadowing which represent a polyp. PANCREAS: The visualized portions are within normal limits. RIGHT KIDNEY: No hydronephrosis, stone or mass. LEFT KIDNEY: No hydronephrosis, stone or mass. SPLEEN: No focal lesion. AORTA: Non aneurysmal. IVC: Within normal limits. OTHER: There is a mass in the right upper quadrant adjacent to the liver and the IVC likely in the retroperi toneum measuring 2.9 x 2.8 x 2.3 cm. CONCLUSION: 2.9 cm hypoechoic solid mass in the right retroperitoneum. In this location, an adrenal mass would be most likely. It is thought this mass should be further evaluated with a CT examination of the abdome n. Delfino Viera MD on September 02, 2016 at 9:37 Board Certified Radiologist. This report was verified electronically.
[2016-09-02 15:13] LABS: GLUCOSE,URINE NEG (NEG); KETONE, URINE NEG (NEG); NITRITE,URINE NEG (NEG)
[2016-09-02 15:14] LABS: BLOOD, URINE MOD (NEG)
[2016-09-02 15:20] LABS: HYALINE CAST, URINE 0-2 /lpf (RARE); SQUAMOUS EPITHELIAL CELL URINE 0-5 /hpf (0-5); URINE COLOR YELLOW (YELLW/STRAW)
[2016-09-02 15:21] LABS: COMMENT (UR) CULT NOT INDICATED; CULTURE IF INDICATED CULT NOT INDICATED
[2016-09-02] MEDS: POTASSIUM CHLORIDE 20 MEQ CONTROLLED RELEASE TAB PO SCH (16:40)
[2016-09-02 17:00] LABS: HEMOGLOBIN A1a 1.2 %; HEMOGLOBIN Ao 82.3 %; HEMOGLOBIN LA1C 2.2 %; HEMOGLOBIN P3 6.5 %
[2016-09-02] MEDS: ENOXAPARIN SODIUM 40 MG/0.4 ML SYRINGE SQ SCH (21:55)
[2016-09-02] MEDS: INSULIN DETEMIR 100 UNITS/ML VIAL SQ SCH (21:57)
[2016-09-02] MEDS: cefTRIAXone INJ 1,000 MG in SODIUM CHLORIDE 0.9% INJ 100 ML IV SCH (21:58)
[2016-09-02] MEDS: ATORVASTATIN 20 MG TAB PO SCH (21:59)
[2016-09-03] VITALS (9 sets, daily range): BP systolic 109–150; BP diastolic 58–86; PULSE 82–98; RESP 16–21; TEMP 97.3–99.3; O2SAT 95–99
[2016-09-03] MEDS: INSULIN ASPART SUPPLEMENTAL SCALE SQ SCH ×4 (06:50→20:56)
[2016-09-03] MEDS: CHLORTHALIDONE PO SCH (08:46)
[2016-09-03] MEDS: ASPIRIN 81 MG CHEW TAB CHEW SCH (08:47)
[2016-09-03] MEDS: AMIODARONE 200 MG TAB PO SCH (08:48)
[2016-09-03] MEDS: LISINOPRIL 20 MG TAB PO SCH (08:48)
[2016-09-03] MEDS: BUMETANIDE INJ 1 MG/4 ML VIAL IV PUSH SCH (08:48)
[2016-09-03 09:48] LABS: AUTOMATED NEUTROPHIL # 10.9 TH/MM3 (1.8-7.7); BASOPHIL # 0.6 TH/MM3 (0-0.2); BASOPHIL % 4.2 % (0.0-2.0); EOSINOPHIL # 0.1 TH/MM3 (0-0.4); EOSINOPHIL % 0.8 % (0.0-4.0); HEMATOCRIT 37.8 % (35.0-46.0); HEMO FLAGS AUTO DIFF; LYMPH % 4.7 % (9.0-44.0); LYMPHOCYTE # 0.7 TH/MM3 (1.0-4.8); MEAN CORPUSCULAR HEMOGLOBIN 30.4 PG (27.0-34.0); MEAN CORPUSCULAR HGB CONC 33.8 % (32.0-36.0); MONO % 13.5 % (0.0-8.0); NEUT % 76.8 % (16.0-70.0); PLATELET COUNT 229 TH/MM3 (150-450); RED CELL DISTRIBUTION WIDTH 13.7 % (11.6-17.2); WHITE BLOOD COUNT 14.2 TH/MM3 (4.0-11.0)
[2016-09-03 09:57] LABS: POTASSIUM 3.3 MEQ/L (3.5-5.1)
[2016-09-03 10:00] LABS: BICARBONATE 28.8 MEQ/L (21.0-32.0)
[2016-09-03 10:26] LABS: PLATELET ESTIMATE SMEAR NORMAL (NORMAL); PLATELET MORPHOLOGY NORMAL (NORMAL); SCAN/DIFF AUTO DIFF CONFIRMED
[2016-09-03] MEDS: POTASSIUM CHLORIDE 20 MEQ CONTROLLED RELEASE TAB PO SCH (10:34)
[2016-09-03] MEDS ORDERED: POTASSIUM CHLORIDE 10 MEQ CONTROLLED RELEASE TAB PO ONE (10:45)
--- NOTE | 2016-09-03 10:51 | HHI.PR ---
Subjective Remarks Follow-up sepsis/bacteremia/UTI/acute systolic CHF/elevated troponin I 09/02/16-patient seen and examined, reports significant improvement of shortness of breath and generalized weakness. Increased appetite. Currently afebrile. 09/03/16-patient seen and examined, stable, afebrile. Abdominal ultrasound with finding of right retroperitoneal mass however patient denies any abdominal pain. No GI bleeding. Objective Vitals Vital Signs Date Time Temp Pulse Resp B/P Pulse Ox O2 Delivery O2 Flow Rate FiO2 09/03/16 08:45 97 21 09/03/16 08:00 97.4 98 18 121/86 97 09/03/16 04:00 99.3 96 16 110/66 99 09/03/16 00:00 98.4 95 16 109/58 99 09/02/16 21:02 95 21 09/02/16 20:00 98.2 101 16 108/65 97 09/02/16 20:00 106 09/02/16 16:00 97.4 89 18 121/78 96 09/02/16 12:00 97.0 98 18 122/59 98 I/O 09/02/16 09/02/16 09/02/16 09/03/16 09/03/16 09/03/16 07:00 15:00 23:00 07:00 15:00 23:00 Intake Total 625 ml 1383 ml 220 ml Output Total 0 ml Balance 625 ml 1383 ml 220 ml Intake Oral 625 ml 300 ml 220 ml IV Total 1083 ml Output Stool Total 0 ml # Voids 3 1 # Bowel Movements 0 Result Diagram: 09/03/16 0930 09/03/16 0930 Imaging Last Impressions Abdomen Ultrasound 09/02/16 0000 Signed Impressions: Service Date/Time: Friday, September 02, 2016 07:51 - CONCLUSION: 2.9 cm hypoechoic solid mass in the right retroperitoneum. In this location, an adrenal mass would be most likely. It is thought this mass should be further evaluated with a CT examination of the abdomen. Delfino Viera MD Myocardial Perfusion Scan Nuc Med 09/01/16 0000 Signed Impressions: Service Date/Time: Thursday, September 01, 2016 10:20 - CONCLUSION: No areas of ischemia are seen. RISK CATEGORY: Low (<1%% Annual Mortality Rate) Delfino Viera MD Chest X-Ray 08/31/161924 Signed Impressions: Service Date/Time: Wednesday, August 31, 2016 19:59 - CONCLUSION: No evidence of acute cardiopulmonary disease. Delfino Russo MD Objective Remarks GENERAL: NAD SKIN: Warm and dry. HEAD: Normocephalic. EYES: No scleral icterus. No injection or drainage. NECK: Supple, trachea midline. No JVD or lymphadenopathy. CARDIOVASCULAR: Regular rate and rhythm without murmurs, gallops, or rubs. RESPIRATORY: Breath sounds equal bilaterally. No accessory muscle use. GASTROINTESTINAL: Abdomen soft, non-tender, nondistended. MUSCULOSKELETAL: No cyanosis, or edema. BACK: Nontender without obvious deformity. No CVA tenderness. A/P Problem List: (1) Sepsis ICD Code: A41.9 Status: Acute (2) Bacteremia due to Gram-negative bacteria ICD Code: R78.81 Status: Acute (3) UTI (urinary tract infection) ICD Code: N39.0 Status: Acute (4) Elevated troponin I measurement ICD Code: R74.8 Status: Acute (5) Acute systolic congestive heart failure ICD Code: I50.21 Status: Acute (6) Renal insufficiency ICD Code: N28.9 Status: Acute (7) Atrial fibrillation ICD Code: I48.91 Status: Chronic (8) Hypokalemia ICD Code: E87.6 Status: Acute Assessment and Plan 71 year-old female with 1-Sepsis: Likely secondary to UTI. Now resolved. 4-Tbmzsvrnkx-Qpnltkujqem coli:+4 BC gram-negative rods, repeat culture NTD and appreciate input from infectious disease specialist. Continue with Rocephin IV . Okay to discharge if repeat blood culture negative 2-3 days 7-ZGG-Ijqazftclfz coli: Currently on Rocephin IV 4-Elevated troponin I: Likely secondary to infectious process. Lexiscan stress test ruled out ischemia. Appreciate input from cardiology 5-History of atrial fibrillation: Continue amiodarone. Not on any oral anticoagulation secondary to previous history of intracranial Hemorrhage. Telemetry monitoring 6-Acute systolic CHF: 2-D echo with EF 45-50%, continue Bumex IV and continue with JAZMIN inhibitor. Will start Lasix 20 mg by mouth daily 09/04/16 and discontinue Bumex today 7-Diabetes type 2: Currently on long-acting basal insulin, sliding-scale insulin and hemoglobin A1c pending 8-Hyperlipidemia: Continue statin 9-Hypokalemia: Give again Potassium 60meQ x 1 now 10-Acute renal failure: monitor BUN and creatinine. Avoid all nephrotoxic drugs 11-Atrial fibrillation: Currently rate controlled, continue amiodarone 12-Abdominal mass: Abdomen NOTED AND REVIEW WITH FINDING OF 2.9 cm hypoechoic solid mass in the right retroperitoneum; likely adrenal mass. Will order a CT abdomen/pelvis for further evaluation. Check tumor marker AFP, CEA and CA125 13-DVT prophylaxis: Lovenox Discharge Planning Likely discharge 09/04/16 Problem Qualifiers (1) Sepsis: Qualified Code: A41.51 - Sepsis due to Escherichia coli (2) UTI (urinary tract infection): Qualified Code: N30.00 - Acute cystitis without hematuria Sridhar Eid MD Sep 03, 2016 10:51 Sridhar Eid MD Sep 03, 2016 10:51
--- NOTE | 2016-09-03 11:46 | RADHPO ---
EXAM DATE/TIME: 09/03/2016 11:04 [facility] COMPARISON: US ABDOMEN - COMPLETE, September 02, 2016, 7:51. INDICATIONS : Abnormal ultrasound. Right retroperitoneal mass. No pain. ORAL CONTRAST: No oral contrast ingested. RADIATION DOSE: 13.88 CTDIvol (mGy) MEDICAL HISTORY : Cerebrovascular disease. Congestive heart failure. Hypertension. Diabetes. SURGICAL HISTORY : Appendectomy. Craniotomy. ENCOUNTER: Initial ACUITY: 2 days PAIN SCALE: 0/10 LOCATION: Right abdomen TECHNIQUE: Volumetric scanning of the abdomen and pelvis was performed. Using automated exposure control and ad justment of the mA and/or kV according to patient size, radiation dose was kept as low as reasonably achievable to obtain optimal diagnostic quality images. FINDINGS: The liver, spleen, pancreas, and left adrenal gland appear normal. There is a 2.8 cm right adrenal g land mass. This measures 20 Hounsfield units. It is nonspecific. There is some minimal fullness of the right collecting system and right ureter. No stones are seen. No renal masses are seen on this non-contrast CT examination. There is some scattered atherosclerotic calcifications seen throughout the arterial system. No pelvic masses are seen. The bowel is unremarkable. Lungs bases are clear. There is spurring seen throughout the lumbar spine. CONCLUSION: 1. No acute abnormality seen. 2. Mild dilatation of the right collecting system and right ureter. No stones are seen. A passed s tone could create this appearance. This can be correlated clinically. 2. A 2.8 cm right adrenal gland mass. This is nonspecific. This does correspond to the mass seen o n the prior ultrasound examination. One could attempt to further characterize this with an MRI exami nation use in and out of phase imaging. This could be performed as an outpatient. Delfino Viera MD on September 03, 2016 at 11:33 Board Certified Radiologist. This report was verified electronically.
--- NOTE | 2016-09-03 17:25 | HHI.IDPN ---
Subjective Subjective Remarks Notes reviewed Admitted with a 1 week h/o generalized weakness, nausea, vomiting- loss of appetite and subjective fever with chills. No diarrhea. Some abdominal discomfort- denies any urinary symptoms and says she never gets UTIs. She feels better today and is anxious to go home. Has E coli urosepsis CT A/P with some dilatation of R collecting system, no stone seen WBC better Not febrile No further N/V No abdominal pain Repeat UA better Repeat BC negative Antibiotics Rocephin Lines PIV Past Medical History Diabetes type 2 Hyperlipidemia Hypertension Atrial fibrillation H/o hemorrhagic stroke some years ago. Past Surgical History Abdominal surgeries Allergies: Coded Allergies: Reglan (Verified Allergy, Intermediate, 08/31/16) Objective . Vital Signs Date Time Temp Pulse Resp B/P Pulse Ox O2 Delivery O2 Flow Rate FiO2 09/03/16 16:00 97.8 82 18 110/75 96 09/03/16 12:00 97.3 82 18 120/78 97 09/03/16 08:45 97 21 09/03/16 08:00 97.4 98 18 121/86 97 09/03/16 06:50 96 09/03/16 04:00 99.3 96 16 110/66 99 09/03/16 00:00 98.4 95 16 109/58 99 09/02/16 21:02 95 21 09/02/16 20:00 98.2 101 16 108/65 97 09/02/16 20:00 106 09/02/16 09/02/16 09/03/16 15:00 23:00 07:00 Intake Total 625 ml 1383 ml 220 ml Output Total 0 ml Balance 625 ml 1383 ml 220 ml Intake Oral 625 ml 300 ml 220 ml IV Total 1083 ml Output Stool Total 0 ml # Voids 3 1 # Bowel Movements 0 . Laboratory Tests Test 09/02/16 09/03/16 05:33 09:30 White Blood Count 18.2 TH/MM3 14.2 TH/MM3 Red Blood Count 4.08 MIL/MM3 4.20 MIL/MM3 Hemoglobin 12.6 GM/DL 12.8 GM/DL Hematocrit 37.0 % 37.8 % Mean Corpuscular Volume 90.6 FL 90.0 FL Mean Corpuscular Hemoglobin 30.8 PG 30.4 PG Mean Corpuscular Hemoglobin 34.0 % 33.8 % Concent Red Cell Distribution Width 13.0 % 13.7 % Platelet Count 163 TH/MM3 229 TH/MM3 Mean Platelet Volume 7.9 FL 7.7 FL Neutrophils (%) (Auto) 82.9 % 76.8 % Lymphocytes (%) (Auto) 3.6 % 4.7 % Monocytes (%) (Auto) 13.0 % 13.5 % Eosinophils (%) (Auto) 0.4 % 0.8 % Basophils (%) (Auto) 0.1 % 4.2 % Neutrophils # (Auto) 15.0 TH/MM3 10.9 TH/MM3 Lymphocytes # (Auto) 0.7 TH/MM3 0.7 TH/MM3 Monocytes # (Auto) 2.4 TH/MM3 1.9 TH/MM3 Eosinophils # (Auto) 0.1 TH/MM3 0.1 TH/MM3 Basophils # (Auto) 0.0 TH/MM3 0.6 TH/MM3 CBC Comment AUTO DIFF AUTO DIFF Differential Comment AUTO DIFF AUTO DIFF CONFIRMED CONFIRMED Platelet Estimate NORMAL NORMAL Platelet Morphology Comment NORMAL NORMAL Red Cell Morphology Comment NORMAL NORMAL Laboratory Tests Test 09/02/16 09/03/16 05:33 09:30 Sodium Level 137 MEQ/L 137 MEQ/L Potassium Level 2.8 MEQ/L 3.3 MEQ/L Chloride Level 100 MEQ/L 98 MEQ/L Carbon Dioxide Level 27.2 MEQ/L 28.8 MEQ/L Anion Gap 10 MEQ/L 10 MEQ/L Blood Urea Nitrogen 37 MG/DL 36 MG/DL Creatinine 1.80 MG/DL 1.80 MG/DL Estimat Glomerular Filtration 28 ML/MIN 28 ML/MIN Rate Random Glucose 105 MG/DL 290 MG/DL Hemoglobin A1c 6.7 % Calcium Level 8.3 MG/DL 8.3 MG/DL Tumor Marker Alpha Fetoprotein 1.8 NG/ML Carcinoembryonic Antigen 5.5 NG/ML CA 19-9 Antigen 44.2 U/ML CA 125 Antigen 47.1 U/ML Microbiology Date/Time Procedure Status Source Growth 08/31/16 19:10 Aerobic Blood Culture - Final Complete Blood Peripheral Escherichia Coli 08/31/16 19:10 Anaerobic Blood Culture - Final Complete Escherichia Coli 08/31/16 19:20 Aerobic Blood Culture - Final Complete Blood Peripheral Escherichia Coli 08/31/16 19:20 Anaerobic Blood Culture - Final Complete Escherichia Coli 08/31/16 19:40 Influenza Types A,B Antigen (JEREMY) - Final Complete Nasal Washing NEGATIVE FOR FLU A AND B ANTIGEN.... 08/31/16 20:00 Urine Culture - Final Complete Urine Catheterized Urine Escherichia Coli 09/01/16 14:20 Aerobic Blood Culture - Preliminary Resulted Blood Peripheral NO GROWTH IN 2 DAYS 09/01/16 14:20 Anaerobic Blood Culture - Preliminary Resulted Blood Peripheral NO GROWTH IN 2 DAYS 09/01/16 14:30 Aerobic Blood Culture - Preliminary Resulted Blood Peripheral NO GROWTH IN 2 DAYS 09/01/16 14:30 Anaerobic Blood Culture - Preliminary Resulted Blood Peripheral NO GROWTH IN 2 DAYS Imaging Last Impressions Abdomen/Pelvis CT 09/03/16 0000 Signed Impressions: Service Date/Time: Saturday, September 03, 2016 11:04 - CONCLUSION: 1. No acute abnormality seen. 2. Mild dilatation of the right collecting system and right ureter. No stones are seen. A passed stone could create this appearance. This can be correlated clinically. 2. A 2.8 cm right adrenal gland mass. This is nonspecific. This does correspond to the mass seen on the prior ultrasound examination. One could attempt to further characterize this with an MRI examination use in and out of phase imaging. This could be performed as an outpatient. Delfino Viera MD Abdomen Ultrasound 09/02/16 0000 Signed Impressions: Service Date/Time: Friday, September 02, 2016 07:51 - CONCLUSION: 2.9 cm hypoechoic solid mass in the right retroperitoneum. In this location, an adrenal mass would be most likely. It is thought this mass should be further evaluated with a CT examination of the abdomen. Delfino Viera MD Myocardial Perfusion Scan Nuc Med 09/01/16 0000 Signed Impressions: Service Date/Time: Thursday, September 01, 2016 10:20 - CONCLUSION: No areas of ischemia are seen. RISK CATEGORY: Low (<1%% Annual Mortality Rate) Delfino Viera MD Chest X-Ray 08/31/16 192 Signed Impressions: Service Date/Time: Wednesday, August 31, 2016 19:59 - CONCLUSION: No evidence of acute cardiopulmonary disease. Delfino Russo MD Physical Exam GENERAL: Awake and alert, up in a chair, NAD SKIN: No rashes, ecchymoses or lesions. Cool and dry. HEENT: [place] conjunctivae. Pupils equal round and reactive. Extraocular motions intact. No scleral icterus. No injection or drainage. Nose without bleeding, or purulent drain. Moist oral mucosa. No oral thrush noted. NECK: Trachea midline. No JVD or lymphadenopathy. Supple, nontender, no meningeal signs. CARDIOVASCULAR: Regular rate and rhythm without murmurs, gallops, or rubs. RESPIRATORY: Clear to auscultation. Breath sounds equal bilaterally. No wheezes , rales, or rhonchi. GASTROINTESTINAL: Abdomen soft, non-tender, nondistended. Bowel sounds are present and normoactive. No organomegaly. No guarding. MUSCULOSKELETAL: Extremities without clubbing, cyanosis, or edema. No joint tenderness, effusion. No calf tenderness. Negative Homans sign bilaterally. NEUROLOGICAL: Awake and alert. Cranial nerves II through XII intact. Normal speech. PSYCH: Seemed to have a flat affect. Calm and cooperative LINE: PIV with no evidence of infection Assessment & Plan Remarks IMPRESSION E coli urosepsis Clinically improved RECOMMENDATION If no further positive blood culture, will switch to Levaquin 750 mg by mouth every 48 hours and give 14 days Patient would like to return to [place], and follow-up with her primary care physician I will have radiology put her ultrasound and CT films on the disc and patient can take it with her and have her follow-up with her primary care physician Will be able to discharge if stable tomorrow Discussed with Dr. Eid Explained plan to the patient and Edyta Balderas MD Sep 03, 2016 17:25
[2016-09-03] MEDS: INSULIN DETEMIR 100 UNITS/ML VIAL SQ SCH (20:56)
[2016-09-03] MEDS: ENOXAPARIN SODIUM 40 MG/0.4 ML SYRINGE SQ SCH (20:57)
[2016-09-03] MEDS: ATORVASTATIN 20 MG TAB PO SCH (20:57)
[2016-09-03] MEDS: cefTRIAXone INJ 1,000 MG in SODIUM CHLORIDE 0.9% INJ 100 ML IV SCH (20:57)
[2016-09-04] VITALS (7 sets, daily range): BP systolic 111–130; BP diastolic 52–82; PULSE 68–108; RESP 18–20; TEMP 97.7–98.8; O2SAT 95–99
[2016-09-04] MEDS: INSULIN ASPART SUPPLEMENTAL SCALE SQ SCH ×4 (07:00→22:02)
[2016-09-04 08:09] LABS: HEMATOCRIT 40.1 % (35.0-46.0); MEAN CELL VOLUME 89.4 FL (80.0-100.0); MEAN CORPUSCULAR HEMOGLOBIN 29.5 PG (27.0-34.0); PLATELET COUNT 325 TH/MM3 (150-450); RED BLOOD COUNT 4.48 MIL/MM3 (4.00-5.30); RED CELL DISTRIBUTION WIDTH 13.8 % (11.6-17.2); WHITE BLOOD COUNT 14.1 TH/MM3 (4.0-11.0)
[2016-09-04 08:19] LABS: POTASSIUM 3.7 MEQ/L (3.5-5.1)
[2016-09-04 08:23] LABS: BICARBONATE 31.5 MEQ/L (21.0-32.0)
[2016-09-04 08:25] LABS: HEMO FLAGS AUTO DIFF
[2016-09-04 08:36] LABS: EOSINOPHILS 2 % (0-4); METAMYELOCYTES 1 % (0-1); NEUTROPHIL # MANUAL DIFF 11.3 TH/MM3 (1.8-7.7); POLYS (SEG NEUTROPHILS) 79 % (16-70); WBC DIFF SAMPLE 100
[2016-09-04 08:37] LABS: PLATELET ESTIMATE SMEAR NORMAL (NORMAL); PLATELET MORPHOLOGY CLUMPED (NORMAL); SCAN/DIFF FINAL DIFF MANUAL
[2016-09-04] MEDS: LEVOFLOXACIN 750 MG TAB PO SCH (10:23)
[2016-09-04] MEDS: ASPIRIN 81 MG CHEW TAB CHEW SCH (10:23)
[2016-09-04] MEDS: FUROSEMIDE 20 MG TAB PO SCH (10:24)
[2016-09-04] MEDS: POTASSIUM CHLORIDE 20 MEQ CONTROLLED RELEASE TAB PO SCH (10:24)
[2016-09-04] MEDS: LISINOPRIL 20 MG TAB PO SCH (10:24)
[2016-09-04] MEDS: AMIODARONE 200 MG TAB PO SCH (10:24)
[2016-09-04] MEDS: CHLORTHALIDONE PO SCH (10:33)
--- NOTE | 2016-09-04 17:09 | HHI.IDPN ---
Subjective Subjective Remarks Notes reviewed Admitted with a 1 week h/o generalized weakness, nausea, vomiting- loss of appetite and subjective fever with chills. No diarrhea. Some abdominal discomfort- denies any urinary symptoms and says she never gets UTIs. She feels better today and is anxious to go home. Has E coli urosepsis CT A/P with some dilatation of R collecting system, no stone seen, has and adrenal mass WBC better Not febrile No further N/V No abdominal pain Repeat UA better Repeat BC negative Antibiotics Rocephin Levaquin Lines PIV Past Medical History Diabetes type 2 Hyperlipidemia Hypertension Atrial fibrillation H/o hemorrhagic stroke some years ago. Past Surgical History Abdominal surgeries Allergies: Coded Allergies: Reglan (Verified Allergy, Intermediate, 08/31/16) Objective . Vital Signs Date Time Temp Pulse Resp B/P Pulse Ox O2 Delivery O2 Flow Rate FiO2 09/04/16 12:00 98.6 108 18 113/74 99 09/04/16 08:00 95 21 09/04/16 08:00 98.5 106 20 130/78 99 09/04/16 04:00 97.7 96 20 111/82 96 09/04/16 00:00 98.8 102 20 118/67 98 09/03/16 20:21 98 21 09/03/16 20:00 97.5 91 21 150/73 95 09/03/16 20:00 87 09/03/16 09/03/16 09/04/16 15:00 23:00 07:00 Intake Total 820 ml 360 ml 120 ml Output Total 900 ml 900 ml Balance 820 ml -540 ml -780 ml Intake Oral 820 ml 360 ml 120 ml Output Urine Total 900 ml 900 ml # Voids 3 2 2 # Bowel Movements 0 0 0 . Laboratory Tests Test 09/03/16 09/04/16 09:30 08:00 White Blood Count 14.2 TH/MM3 14.1 TH/MM3 Red Blood Count 4.20 MIL/MM3 4.48 MIL/MM3 Hemoglobin 12.8 GM/DL 13.2 GM/DL Hematocrit 37.8 % 40.1 % Mean Corpuscular Volume 90.0 FL 89.4 FL Mean Corpuscular Hemoglobin 30.4 PG 29.5 PG Mean Corpuscular Hemoglobin 33.8 % 33.0 % Concent Red Cell Distribution Width 13.7 % 13.8 % Platelet Count 229 TH/MM3 325 TH/MM3 Mean Platelet Volume 7.7 FL 7.3 FL Neutrophils (%) (Auto) 76.8 % % Lymphocytes (%) (Auto) 4.7 % % Monocytes (%) (Auto) 13.5 % % Eosinophils (%) (Auto) 0.8 % % Basophils (%) (Auto) 4.2 % % Neutrophils # (Auto) 10.9 TH/MM3 TH/MM3 Lymphocytes # (Auto) 0.7 TH/MM3 TH/MM3 Monocytes # (Auto) 1.9 TH/MM3 TH/MM3 Eosinophils # (Auto) 0.1 TH/MM3 TH/MM3 Basophils # (Auto) 0.6 TH/MM3 TH/MM3 CBC Comment AUTO DIFF AUTO DIFF Differential Comment AUTO DIFF FINAL DIFF CONFIRMED MANUAL Platelet Estimate NORMAL NORMAL Platelet Morphology Comment NORMAL CLUMPED Red Cell Morphology Comment NORMAL NORMAL Differential Total Cells 100 Counted Neutrophils % (Manual) 79 % Lymphocytes % 10 % Monocytes % 8 % Eosinophils % 2 % Neutrophils # (Manual) 11.3 TH/MM3 Metamyelocytes 1 % Laboratory Tests Test 09/03/16 09/04/16 09:30 08:00 Sodium Level 137 MEQ/L 140 MEQ/L Potassium Level 3.3 MEQ/L 3.7 MEQ/L Chloride Level 98 MEQ/L 99 MEQ/L Carbon Dioxide Level 28.8 MEQ/L 31.5 MEQ/L Anion Gap 10 MEQ/L 10 MEQ/L Blood Urea Nitrogen 36 MG/DL 33 MG/DL Creatinine 1.80 MG/DL 1.70 MG/DL Estimat Glomerular Filtration 28 ML/MIN 30 ML/MIN Rate Random Glucose 290 MG/DL 87 MG/DL Calcium Level 8.3 MG/DL 8.6 MG/DL Tumor Marker Alpha Fetoprotein 1.8 NG/ML Carcinoembryonic Antigen 5.5 NG/ML CA 19-9 Antigen 44.2 U/ML CA 125 Antigen 47.1 U/ML Imaging Last Impressions Abdomen/Pelvis CT 09/03/16 0000 Signed Impressions: Service Date/Time: Saturday, September 03, 2016 11:04 - CONCLUSION: 1. No acute abnormality seen. 2. Mild dilatation of the right collecting system and right ureter. No stones are seen. A passed stone could create this appearance. This can be correlated clinically. 2. A 2.8 cm right adrenal gland mass. This is nonspecific. This does correspond to the mass seen on the prior ultrasound examination. One could attempt to further characterize this with an MRI examination use in and out of phase imaging. This could be performed as an outpatient. Delfino Viera MD Abdomen Ultrasound 09/02/16 0000 Signed Impressions: Service Date/Time: Friday, September 02, 2016 07:51 - CONCLUSION: 2.9 cm hypoechoic solid mass in the right retroperitoneum. In this location, an adrenal mass would be most likely. It is thought this mass should be further evaluated with a CT examination of the abdomen. Delfino Viera MD Myocardial Perfusion Scan Nuc Med 09/01/16 0000 Signed Impressions: Service Date/Time: Thursday, September 01, 2016 10:20 - CONCLUSION: No areas of ischemia are seen. RISK CATEGORY: Low (<1%% Annual Mortality Rate) Delfino Viera MD Chest X-Ray 08/31/161924 Signed Impressions: Service Date/Time: Wednesday, August 31, 2016 19:59 - CONCLUSION: No evidence of acute cardiopulmonary disease. Delfino Russo MD Physical Exam GENERAL: Awake and alert, up in a chair, NAD SKIN: No rashes, ecchymoses or lesions. Cool and dry. HEENT: [place] conjunctivae. Pupils equal round and reactive. Extraocular motions intact. No scleral icterus. No injection or drainage. Nose without bleeding, or purulent drain. Moist oral mucosa. No oral thrush noted. NECK: Trachea midline. No JVD or lymphadenopathy. Supple, nontender, no meningeal signs. CARDIOVASCULAR: Regular rate and rhythm without murmurs, gallops, or rubs. RESPIRATORY: Clear to auscultation. Breath sounds equal bilaterally. No wheezes , rales, or rhonchi. GASTROINTESTINAL: Abdomen soft, non-tender, nondistended. Bowel sounds are present and normoactive. No organomegaly. No guarding. MUSCULOSKELETAL: Extremities without clubbing, cyanosis, or edema. No joint tenderness, effusion. No calf tenderness. Negative Homans sign bilaterally. NEUROLOGICAL: Awake and alert. Cranial nerves II through XII intact. Normal speech. PSYCH: Seemed to have a flat affect. Calm and cooperative LINE: PIV with no evidence of infection Assessment & Plan Remarks IMPRESSION E coli urosepsis Clinically improved RECOMMENDATION Stop Rocephin Continue Levaquin give x 14 days I gave copies of labs and C/S and radiology report to Will ask Radiology dept to put all radiology films on a disc and give to patient Patient is stable for D/C from ID standpoint I will sign off Explained plan to the patient and Edyta Balderas MD Sep 04, 2016 17:09
--- NOTE | 2016-09-04 18:44 | HHI.PR ---
Subjective Remarks Patient resting in bed in no acute distress, at the bedside, she is very worried and anxious, she wants to go back to [place] No chest pain short of breath fever or chills She is not aware of weight loss recently I informed her and her about the result of the tumor markers, she agree on consulting oncologist Objective Vitals Vital Signs Date Time Temp Pulse Resp B/P Pulse Ox O2 Delivery O2 Flow Rate FiO2 09/04/16 16:00 98.7 74 18 123/70 98 09/04/16 12:00 98.6 108 18 113/74 99 09/04/16 08:00 95 21 09/04/16 08:00 98.5 106 20 130/78 99 09/04/16 04:00 97.7 96 20 111/82 96 09/04/16 00:00 98.8 102 20 118/67 98 09/03/16 20:21 98 21 09/03/16 20:00 97.5 91 21 150/73 95 09/03/16 20:00 87 I/O 09/03/16 09/03/16 09/03/16 09/04/16 09/04/16 09/04/16 07:00 15:00 23:00 07:00 15:00 23:00 Intake Total 220 ml 820 ml 360 ml 120 ml 750 ml Output Total 0 ml 900 ml 900 ml Balance 220 ml 820 ml -540 ml -780 ml 750 ml Intake Oral 220 ml 820 ml 360 ml 120 ml 750 ml Output Urine Total 900 ml 900 ml Stool Total 0 ml # Voids 1 3 2 2 # Bowel Movements 0 0 0 0 Result Diagram: 09/04/16 0809/04/16 08 Objective Remarks GENERAL: This is a well-nourished, well-developed patient, in no apparent distress. SKIN: No rashes, warm and dry HEAD: Atraumatic. Normocephalic. EYES: Pupils equal round and reactive. Extraocular motions intact. No scleral icterus. ENT: Nose without bleeding, or drainage, Airway patent. NECK: Trachea midline. Supple CARDIOVASCULAR: Regular rate and rhythm without murmurs, gallops, or rubs. RESPIRATORY: Fair air entry bilaterally. No wheezes, rales, or rhonchi. GASTROINTESTINAL: Abdomen soft, non-tender, nondistended. Positive bowel sounds MUSCULOSKELETAL: Extremities without clubbing, cyanosis, or edema. Pedal pulses appreciated NEUROLOGICAL: Awake and alert. Moves all extremity. Normal speech.no focal neurological deficit A/P Problem List: (1) Sepsis ICD Code: A41.9 Status: Acute (2) Bacteremia due to Gram-negative bacteria ICD Code: R78.81 Status: Acute (3) UTI (urinary tract infection) ICD Code: N39.0 Status: Acute (4) Elevated troponin I measurement ICD Code: R74.8 Status: Acute (5) Acute systolic congestive heart failure ICD Code: I50.21 Status: Acute (6) Renal insufficiency ICD Code: N28.9 Status: Acute (7) Atrial fibrillation ICD Code: I48.91 Status: Chronic (8) Hypokalemia ICD Code: E87.6 Status: Acute Assessment and Plan 09/04/16: Positive tumor markers, CT abdomen and pelvic reviewed personally by me confirmed abdominal mass, will consult medical oncologist 71 year-old female with 1-Sepsis: Resolved Likely secondary to UTI. 6-Ownznjeqge-Eezlzxshxbs coli:+4 BC gram-negative rods, repeat culture NTD and appreciate input from infectious disease specialist. Continue with Rocephin IV . Okay to discharge if repeat blood culture negative 2-3 days 0-ITK-Kzrdkutazcn coli: Currently on Rocephin IV 4-Elevated troponin I: Likely secondary to infectious process. Lexiscan stress test ruled out ischemia. Urology consult 5-History of atrial fibrillation: Continue amiodarone. Not on any oral anticoagulation secondary to previous history of intracranial Hemorrhage. Telemetry monitoring 6-Acute systolic CHF: 2-D echo with EF 45-50%, continue Bumex IV and continue with JAZMIN inhibitor. Will start Lasix 20 mg by mouth daily 09/04/16 and discontinue Bumex today 7-Diabetes type 2: Currently on long-acting basal insulin, sliding-scale insulin and hemoglobin A1c pending 8-Hyperlipidemia: Continue statin 9-Hypokalemia: Give again Potassium 60meQ x 1 now 10-Acute renal failure: monitor BUN and creatinine. Avoid all nephrotoxic drugs 11-Atrial fibrillation: Currently rate controlled, continue amiodarone 12-Abdominal mass: Abdomen NOTED AND REVIEW WITH FINDING OF 2.9 cm hypoechoic solid mass in the right retroperitoneum; likely adrenal mass. CT abdomen/ pelvis reviewed as above positive mass. tumor marker AFP, CEA and CA125 all positive and above normal limits, we'll consult oncologist 13-DVT prophylaxis: Lovenox Problem Qualifiers (1) Sepsis: Qualified Code: A41.51 - Sepsis due to Escherichia coli (2) UTI (urinary tract infection): Qualified Code: N30.00 - Acute cystitis without hematuria Sean Domínguez MD Sep 04, 2016 18:44
--- NOTE | 2016-09-04 20:58 | PD.CONS ---
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 Elevated serum tumor marker CA-125, CA-19-9 and CEA. Primary Care Physician Non-Staff Diagnoses: (1) Mass of right adrenal gland History of Present Illness Chief complaint: 1. One week history of malaise and fatigue. 2. Syncopal episode; observed by her . History of present illness: Mrs. Vargas is a very pleasant 71-year-old female from [facility]. Patient has a history of diabetes, hypertension and history of hemorrhagic stroke. Patient reports having been well up until about 2 weeks ago , she subsequently began to notice fatigue weakness and malaise. She reports a general lack of energy and decreased appetite as well. On the day of admission she was talking to her while standing in her kitchen when she passed out , she was caught by her and did not hit the ground. She brought directly into the emergency department here at [facility] in [place]. Workup revealed Escherichia coli urosepsis, the organism was pansensitive. The patient did report some vague abdominal pain and underwent an ultrasound of the abdomen which revealed a mass involving the left adrenal gland. She subsequently underwent a CT scan of the abdomen and pelvis which confirmed presence of an adrenal mass. Serum tumor marker CEA, CA-19-9 and CA-125 were ordered and these were all noted to be slightly higher than above the accepted range. The oncology service has been asked to evaluate this patient for further workup and management. Of note, the patient tells me she plans to travel back to [place] within a week of her discharge from this hospital, she expects to be discharged in the upcoming 2-3 days. Review of Systems Constitutional: COMPLAINS OF: Fatigue, Fever, Chills, Dizziness, Change in appetite, DENIES: Diaphoretic episodes, Weight gain, Weight loss, Night Sweats Endocrine: DENIES: Abnorml menstrual pattern, Heat/cold intolerance, Polydipsia , Polyuria, Polyphagia Eyes: DENIES: Blurred vision, Diplopia, Eye inflammation, Eye pain, Vision loss , Photosensitivity, Double Vision Ears, nose, mouth, throat: DENIES: Tinnitus, Hearing loss, Vertigo, Nasal discharge, Oral lesions, Throat pain, Hoarseness, Ear Pain, Running Nose, Epistaxis, Sinus Pain, Toothache, Odynophagia Respiratory: COMPLAINS OF: Cough, Sputum production, DENIES: Apneas, Snoring, Wheezing, Hemoptysis, Shortness of breath Cardiovascular: COMPLAINS OF: Palpitations, Syncope, DENIES: Chest pain, Dyspnea on Exertion, PND, Lower Extremity Edema, Orthopnea, Claudication Gastrointestinal: COMPLAINS OF: Abdominal pain, DENIES: Black stools, Bloody stools, Constipation, Diarrhea, Nausea, Vomiting, Difficulty Swallowing, Anorexia Genitourinary: DENIES: Abnormal vaginal bleeding, Dysmenorrhea, Dyspareunia, Sexual dysfunction, Urinary frequency, Urinary incontinence, Urgency, Hematuria , Dysuria, Nocturia, Vaginal discharge Musculoskeletal: DENIES: Joint pain, Muscle aches, Stiffness, Joint Swelling, Back pain, Neck pain Integumentary: DENIES: Abnormal pigmentation, Pruritus, Rash, Nail changes, Breast masses, Breast skin changes, Nipple discharge Hematologic/lymphatic: DENIES: Bruising, Lymphadenopathy Immunologic/allergic: DENIES: Eczema, Urticaria Neurologic: COMPLAINS OF: Headache, DENIES: Abnormal gait, Localized weakness , Paresthesias, Seizures, Speech Problems, Tremor, Poor Balance Psychiatric: COMPLAINS OF: Anxiety, DENIES: Confusion, Mood changes, Depression, Hallucinations, Agitation, Suicidal Ideation, Homicidal Ideation, Delusions Except as stated in HPI: all other systems reviewed are Neg Past Family Social History Allergies: Coded Allergies: Reglan (Verified Allergy, Intermediate, 08/31/16) Past Medical History Hypertension Diabetes Reported history of hemorrhagic stroke in 2012 Personal history of tobacco some but quit about 40 years ago Past Surgical History Appendectomy Breast reduction surgery Colonoscopy Reported Medications Current inpatient medications: Ceftriaxone 1 g IV every 24 hours Acetaminophen 650 mg by mouth every 4 hours as needed for fever over 100.4F Albuterol/ipratropium nebulizers every 2 hours as needed for wheezing Amiodarone 200 mg by mouth daily Aspirin 81 mg daily Atorvastatin 20 mg by mouth daily at bedtime Lovenox 30 mg subcutaneous every 24 hours Lasix 20 mg by mouth daily Insulin Levemir 18 units subcutaneous daily at bedtime Levofloxacin 750 mg by mouth every 48 hours Lisinopril 40 MG by mouth daily Insulin NovoLog sliding scale prior to meals Zofran 4 mg IV every 6 hours as needed for nausea and vomiting Potassium chloride 20 mg by mouth daily Family History Mother at a young age, cause not known Father at the age of 80 "of natural causes" No known oncologic or malignant hematologic diagnoses. Social History The patient is , she lives at home with her . She has 2 adult daughters. 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 She reports having been a smoker, she smoked a few years in total but quit 40 years ago. Health maintenance: Mammogram generally 2017; normal. Colonoscopy: April 2016. Physical Exam Vital Signs Vital Signs Date Time Temp Pulse Resp B/P Pulse Ox O2 Delivery O2 Flow Rate FiO2 09/04/16 20:03 98 09/04/16 16:00 98.7 74 18 123/70 98 09/04/16 12:00 98.6 108 18 113/74 99 09/04/16 08:00 95 21 09/04/16 08:00 98.5 106 20 130/78 99 09/04/16 04:00 97.7 96 20 111/82 96 09/04/16 00:00 98.8 102 20 118/67 98 Physical Exam GENERAL: Elderly female laying in bed, in no acute distress, she has a pleasant disposition. SKIN: No rashes, ecchymoses or lesions. Warm and dry. HEAD: Atraumatic. Normocephalic. No temporal or scalp tenderness. EYES: Pupils equal round and reactive. Extraocular motions intact. No scleral icterus. No injection or drainage. ENT: Nose without bleeding, purulent drainage or septal hematoma. Throat without erythema, tonsillar hypertrophy or exudate. Uvula midline. Airway patent. NECK: Trachea midline. No JVD or lymphadenopathy. Supple, nontender, no meningeal signs. CARDIOVASCULAR: Regular rate and rhythm without murmurs, gallops, or rubs. RESPIRATORY: Clear to auscultation. Breath sounds equal bilaterally. No wheezes , rales, or rhonchi. GASTROINTESTINAL: Protuberant belly, Abdomen soft, non-tender, nondistended. No hepato-splenomegaly, or palpable masses. No guarding. MUSCULOSKELETAL: Extremities without clubbing, cyanosis, or edema. No joint tenderness, effusion, or edema noted. No calf tenderness. Negative Homans sign bilaterally. NEUROLOGICAL: Awake and alert. Cranial nerves II through XII intact. Motor and sensory grossly within normal limits. Five out of 5 muscle strength in all muscle groups. Normal speech. Axillary examination: No palpable axillary lymphadenopathy. Laboratory Laboratory Tests Test 09/04/16 08:00 White Blood Count 14.1 Red Blood Count 4.48 Hemoglobin 13.2 Hematocrit 40.1 Mean Corpuscular Volume 89.4 Mean Corpuscular Hemoglobin 29.5 Mean Corpuscular Hemoglobin 33.0 Concent Red Cell Distribution Width 13.8 Platelet Count 325 Mean Platelet Volume 7.3 Neutrophils (%) (Auto) Lymphocytes (%) (Auto) Monocytes (%) (Auto) Eosinophils (%) (Auto) Basophils (%) (Auto) Neutrophils # (Auto) Lymphocytes # (Auto) Monocytes # (Auto) Eosinophils # (Auto) Basophils # (Auto) CBC Comment AUTO DIFF Differential Total Cells 100 Counted Neutrophils % (Manual) 79 Lymphocytes % 10 Monocytes % 8 Eosinophils % 2 Neutrophils # (Manual) 11.3 Metamyelocytes 1 Differential Comment FINAL DIFF MANUAL Platelet Estimate NORMAL Platelet Morphology Comment CLUMPED Red Cell Morphology Comment NORMAL Sodium Level 140 Potassium Level 3.7 Chloride Level 99 Carbon Dioxide Level 31.5 Anion Gap 10 Blood Urea Nitrogen 33 Creatinine 1.70 Estimat Glomerular Filtration 30 Rate Random Glucose 87 Calcium Level 8.6 Date/Time Procedure Status Source Growth 09/01/16 14:30 Aerobic Blood Culture - Preliminary Resulted Blood Peripheral NO GROWTH IN 3 DAYS 09/01/16 14:30 Anaerobic Blood Culture - Preliminary Resulted Blood Peripheral NO GROWTH IN 3 DAYS 08/31/16 20:00 Urine Culture - Final Complete Urine Catheterized Urine Escherichia Coli 08/31/16 19:40 Influenza Types A,B Antigen (JEREMY) - Final Complete Nasal Washing NEGATIVE FOR FLU A AND B ANTIGEN.... 08/31/16 19:20 Aerobic Blood Culture - Final Complete Blood Peripheral Escherichia Coli 08/31/16 19:20 Anaerobic Blood Culture - Final Complete Escherichia Coli Result Diagram: 09/04/16 0800 09/04/[address] scan of abdomen and pelvis without IV contrast dated 09/03/2016: 1. No acute abnormality seen. 2. Mild elevation of the right collecting system and right ureter. No stones are seen. 3. 2.8 cm right adrenal gland mass.This is nonspecific. This does correspond to the mass seen on the prior ultrasound examination. One could attempt to further characterized with an MRI examination. 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 Ideally the imaging modality ought to be contrast enhanced to assess for intravenous contrast washout characteristics to distinguish between benign adenomas and neoplasia. However, due to her renal insufficiency she is unable to undergo contrast enhanced imaging scans. I would recommend obtaining 24 hour urine metanephrines to rule out pheochromocytoma. The patient does not provide me classical history for a pheochromocytoma but it may be reasonable to initiate the workup while she is here in the hospital. Additionally given her history of smoking and would be reasonable to obtain a noncontrast enhanced CT scan of the chest to rule out possible primary lesion within the thorax. Additional differential diagnoses include subclinical Suni's syndrome; I would defer workup for this to the primary team. Assessment and Plan 71-year-old female presented to the hospital with urosepsis secondary to Escherichia coli (pansensitive organism). Found to be in acute renal insufficiency as well as with other metabolic derangements including hypokalemia. Found to have a right adrenal incidental all measuring 2.8 cm with nonspecific Hounsfield units; measured at 20. Oncology has been asked to see this patient to rule out neoplasia. She has no personal history of malignancy. Confounding this situation are slight elevations in serum CEA, CA-19-9 and CA- 125 levels; these findings in my opinion may be nonspecific at this time and may have been elevated due to urosepsis. Plan: 1. Begin collecting 24-hour urine metanephrines to rule out pheochromocytoma. 2. Obtain noncontrast enhanced CT scan of the chest to rule out a lung primary. 3. Consider obtaining a CT-guided biopsy of the lesion should her urine metanephrine levels being normal; rare malignancy such as primary adrenal cortical carcinoma and also present like this. Disposition: The patient did inform me that she would prefer being worked up in [place] upon her return there. I would however like to perform whatever workup we can while she is in-house specifically to rule out a pheochromocytoma. Kennedy Ngo MD Sep 04, 2016 20:58
[2016-09-04] MEDS: ENOXAPARIN SODIUM 40 MG/0.4 ML SYRINGE SQ SCH (22:02)
[2016-09-04] MEDS: INSULIN DETEMIR 100 UNITS/ML VIAL SQ SCH (22:02)
[2016-09-04] MEDS: ATORVASTATIN 20 MG TAB PO SCH (22:03)
[2016-09-05] VITALS (8 sets, daily range): BP systolic 117–147; BP diastolic 58–81; PULSE 65–82; RESP 16–20; TEMP 97.4–99.1; O2SAT 95–99
[2016-09-05] MEDS: INSULIN ASPART SUPPLEMENTAL SCALE SQ SCH ×4 (07:00→21:01)
--- NOTE | 2016-09-05 07:50 | RADHPO ---
EXAM DATE/TIME: 09/05/2016 07:27 [facility] COMPARISON: CT ABDOMEN & PELVIS W/O CONTRAST, September 03, 2016, 11:04. INDICATIONS : General weakness. Cough. Fever. Hyponatremia. Evaluate for mass. RADIATION DOSE: 7.93 CTDIvol (mGy) MEDICAL HISTORY : Cardiovascular disease. Cerebrovascular disease. Congestive heart failure. Hypertension. Diabetes. SURGICAL HISTORY : Appendectomy. ENCOUNTER: Initial ACUITY: 2 weeks PAIN SCALE: 0/10 LOCATION: chest TECHNIQUE: Volumetric scanning of the chest was performed. Using automated exposure control and adjustment of t he mA and/or kV according to patient size, radiation dose was kept as low as reasonably achievable to obtain optimal diagnostic quality images. FINDINGS: LUNGS: Mild linear atelectasis within the lingula and right lung base. No mass or infiltrate. No bronchiecta sis. PLEURAE: There is no pleural thickening or pleural effusion. MEDIASTINUM: The heart and great vessels demonstrate no acute abnormality. There is no mediastinal or hilar lymph adenopathy. AXILLAE: Within normal limits. No lymphadenopathy. MUSCULOSKELETAL: Within normal limits for patient age. MISCELLANEOUS: 3.1 cm right adrenal gland mass is seen. Hounsfield units are 29 on this unenhanced study. Left adren al gland is unremarkable. CONCLUSION: 1. No acute intrathoracic process. In particular, no mass observed. 2. 3.1 cm right adrenal gland mass previously described. MRI suggested to further evaluate. Coy Snow Jr., MD on September 05, 2016 at 7:42 Board Certified Radiologist. This report was verified electronically.
[2016-09-05] MEDS: CHLORTHALIDONE PO SCH (08:36)
[2016-09-05] MEDS: POTASSIUM CHLORIDE 20 MEQ CONTROLLED RELEASE TAB PO SCH (08:37)
[2016-09-05] MEDS: LISINOPRIL 20 MG TAB PO SCH (08:37)
[2016-09-05] MEDS: ASPIRIN 81 MG CHEW TAB CHEW SCH (08:37)
[2016-09-05] MEDS: FUROSEMIDE 20 MG TAB PO SCH (08:37)
[2016-09-05] MEDS: AMIODARONE 200 MG TAB PO SCH (08:37)
[2016-09-05 12:20] LABS: BASOPHIL # 0.4 TH/MM3 (0-0.2); BASOPHIL % 2.7 % (0.0-2.0); EOSINOPHIL % 0.3 % (0.0-4.0); HEMATOCRIT 38.5 % (35.0-46.0); LYMPH % 7.2 % (9.0-44.0); MEAN CELL VOLUME 89.7 FL (80.0-100.0); MEAN CORPUSCULAR HGB CONC 33.5 % (32.0-36.0); MONO % 8.9 % (0.0-8.0); NEUT % 80.9 % (16.0-70.0); PLATELET COUNT 364 TH/MM3 (150-450); RED BLOOD COUNT 4.29 MIL/MM3 (4.00-5.30); RED CELL DISTRIBUTION WIDTH 13.7 % (11.6-17.2); WHITE BLOOD COUNT 13.6 TH/MM3 (4.0-11.0)
[2016-09-05 12:27] LABS: HEMO FLAGS DIFF FINAL
[2016-09-05 12:32] LABS: BICARBONATE 29.1 MEQ/L (21.0-32.0)
--- NOTE | 2016-09-05 16:51 | HHI.PR ---
Subjective Remarks Patient sitting on the chair comfortably, discussed with her aboutPlan: In the workup to rule out pheochromocytoma Currently she doesn't have headache or lightheadedness no chest pain or short of breath she is afebrile Working on 24 hours urine metanephrine to rule out pheochromocytoma, following with linux server engineer Objective Vitals Vital Signs Date Time Temp Pulse Resp B/P Pulse Ox O2 Delivery O2 Flow Rate FiO2 09/05/16 16:15 98.1 65 18 133/65 95 09/05/16 12:14 98.3 82 18 147/72 96 09/05/16 08:10 98.8 71 18 140/81 97 09/05/16 04:00 97.4 69 20 129/71 99 09/05/16 00:00 98.2 68 20 117/58 99 09/05/16 00:00 98.2 68 20 117/58 99 09/04/16 20:03 98 09/04/16 20:00 72 09/04/16 20:00 98.7 68 20 118/52 97 I/O 09/04/16 09/04/16 09/04/16 09/05/16 09/05/16 09/05/16 07:00 15:00 23:00 07:00 15:00 23:00 Intake Total 120 ml 1425 ml 240 ml 240 ml 850 ml Output Total 900 ml 900 ml 600 ml 1800 ml Balance -780 ml 1425 ml -660 ml -360 ml -950 ml Intake Oral 120 ml 1425 ml 240 ml 240 ml 850 ml Output Urine Total 900 ml 900 ml 600 ml 1800 ml # Voids 2 4 # Bowel Movements 0 0 0 Result Diagram: 09/05/16 1205 09/05/16 1205 Objective Remarks GENERAL: This is a well-nourished, well-developed patient, in no apparent distress. SKIN: No rashes, warm and dry HEAD: Atraumatic. Normocephalic. EYES: Pupils equal round and reactive. Extraocular motions intact. No scleral icterus. ENT: Nose without bleeding, or drainage, Airway patent. NECK: Trachea midline. Supple CARDIOVASCULAR: Regular rate and rhythm without murmurs, gallops, or rubs. RESPIRATORY: Fair air entry bilaterally. No wheezes, rales, or rhonchi. GASTROINTESTINAL: Abdomen soft, non-tender, nondistended. Positive bowel sounds MUSCULOSKELETAL: Extremities without clubbing, cyanosis, or edema. Pedal pulses appreciated NEUROLOGICAL: Awake and alert. Moves all extremity. Normal speech.no focal neurological deficit A/P Problem List: (1) Sepsis ICD Code: A41.9 Status: Acute (2) Bacteremia due to Gram-negative bacteria ICD Code: R78.81 Status: Acute (3) UTI (urinary tract infection) ICD Code: N39.0 Status: Acute (4) Elevated troponin I measurement ICD Code: R74.8 Status: Acute (5) Acute systolic congestive heart failure ICD Code: I50.21 Status: Acute (6) Renal insufficiency ICD Code: N28.9 Status: Acute (7) Atrial fibrillation ICD Code: I48.91 Status: Chronic (8) Hypokalemia ICD Code: E87.6 Status: Acute Assessment and Plan 09/04/16: Positive tumor markers, CT abdomen and pelvic reviewed personally by me confirmed abdominal mass, will consult medical oncologist 09/05/16:D/W linux server engineer Dr. Ngo appreciate his input, increased tumor marker of no major significance at this point however we need to rule out to phyochromocytoma, working on 24-hour urine metanephrine 71 year-old female with 1-Sepsis: Resolved Likely secondary to UTI. 2-Hdumevdkqv-Swlhwjvgyyx coli:+4 BC gram-negative rods, repeat culture NTD and appreciate input from infectious disease specialist. Continue with Rocephin IV . Okay to discharge if repeat blood culture negative 2-3 days 3-QQW-Udvfxlmqndl coli: Currently on Rocephin IV 4-Elevated troponin I: Likely secondary to infectious process. Lexiscan stress test ruled out ischemia. Urology consult 5-History of atrial fibrillation: Continue amiodarone. Not on any oral anticoagulation secondary to previous history of intracranial Hemorrhage. Telemetry monitoring 6-Acute systolic CHF: 2-D echo with EF 45-50%, continue Bumex IV and continue with JAZMIN inhibitor. Will start Lasix 20 mg by mouth daily 09/04/16 and discontinue Bumex today 7-Diabetes type 2: Currently on long-acting basal insulin, sliding-scale insulin and hemoglobin A1c pending 8-Hyperlipidemia: Continue statin 9-Hypokalemia: Give again Potassium 60meQ x 1 now 10-Acute renal failure: monitor BUN and creatinine. Avoid all nephrotoxic drugs 11-Atrial fibrillation: Currently rate controlled, continue amiodarone 12-Abdominal mass: Abdomen NOTED AND REVIEW WITH FINDING OF 2.9 cm hypoechoic solid mass in the right retroperitoneum; likely adrenal mass. CT abdomen/ pelvis reviewed as above positive mass. tumor marker AFP, CEA and CA125 all positive and above normal limits, collagen consulted, no major significance of the tumor marker, however rule out pheochromocytoma 13-DVT prophylaxis: Lovenox Problem Qualifiers (1) Sepsis: Qualified Code: A41.51 - Sepsis due to Escherichia coli (2) UTI (urinary tract infection): Qualified Code: N30.00 - Acute cystitis without hematuria Sean Domínguez MD Sep 05, 2016 16:51
[2016-09-05] MEDS: ATORVASTATIN 20 MG TAB PO SCH (20:52)
[2016-09-05] MEDS: ENOXAPARIN SODIUM 40 MG/0.4 ML SYRINGE SQ SCH (20:53)
[2016-09-05] MEDS: INSULIN DETEMIR 100 UNITS/ML VIAL SQ SCH (21:02)
[2016-09-06 00:29] VITALS: BP 117/68; PULSE 64; RESP 14; TEMP 97.3; O2SAT 97
[2016-09-06 04:29] VITALS: BP 120/77; PULSE 77; RESP 18; TEMP 98; O2SAT 98
[2016-09-06] MEDS: INSULIN ASPART SUPPLEMENTAL SCALE SQ SCH ×3 (06:31→17:41)
[2016-09-06 07:24] LABS: AUTOMATED NEUTROPHIL # 10.8 TH/MM3 (1.8-7.7); BASOPHIL % 0.1 % (0.0-2.0); EOSINOPHIL % 0.2 % (0.0-4.0); HEMATOCRIT 36.9 % (35.0-46.0); LYMPH % 8.7 % (9.0-44.0); LYMPHOCYTE # 1.1 TH/MM3 (1.0-4.8); MEAN CELL VOLUME 90.4 FL (80.0-100.0); MEAN CORPUSCULAR HEMOGLOBIN 30.1 PG (27.0-34.0); MEAN CORPUSCULAR HGB CONC 33.4 % (32.0-36.0); MONO % 8.7 % (0.0-8.0); NEUT % 82.3 % (16.0-70.0); PLATELET COUNT 398 TH/MM3 (150-450); RED BLOOD COUNT 4.08 MIL/MM3 (4.00-5.30); RED CELL DISTRIBUTION WIDTH 13.5 % (11.6-17.2)
[2016-09-06 07:35] LABS: POTASSIUM 3.7 MEQ/L (3.5-5.1)
[2016-09-06 07:38] LABS: HEMO FLAGS AUTO DIFF
[2016-09-06 07:42] LABS: BICARBONATE 30.7 MEQ/L (21.0-32.0)
[2016-09-06 08:00] VITALS: BP 125/78; PULSE 93; RESP 18; TEMP 97.5; O2SAT 97
[2016-09-06 08:19] LABS: PLATELET ESTIMATE SMEAR NORMAL (NORMAL); PLATELET MORPHOLOGY NORMAL (NORMAL); ROULEAUX PRESENT (NORMAL); SCAN/DIFF AUTO DIFF CONFIRMED
[2016-09-06] MEDS: AMIODARONE 200 MG TAB PO SCH (10:02)
[2016-09-06] MEDS: ASPIRIN 81 MG CHEW TAB CHEW SCH (10:02)
[2016-09-06] MEDS: POTASSIUM CHLORIDE 20 MEQ CONTROLLED RELEASE TAB PO SCH (10:02)
[2016-09-06] MEDS: LISINOPRIL 20 MG TAB PO SCH (10:02)
[2016-09-06] MEDS: LEVOFLOXACIN 750 MG TAB PO SCH (10:02)
[2016-09-06] MEDS: FUROSEMIDE 20 MG TAB PO SCH (10:03)
[2016-09-06] MEDS: CHLORTHALIDONE PO SCH (10:03)
[2016-09-06] MEDS ORDERED: PHARMACY ORDERED LAB XX ONE (11:45)
[2016-09-06 12:00] VITALS: BP 105/63; PULSE 67; RESP 18; TEMP 97.3; O2SAT 98
--- NOTE | 2016-09-06 12:10 | HHI.PR ---
Subjective Remarks Patient she wants to be discharged home, 24 hour urine collection of metanephrine will be done today Objective Vitals Vital Signs Date Time Temp Pulse Resp B/P Pulse Ox O2 Delivery O2 Flow Rate FiO2 09/06/16 08:00 97.5 93 18 125/78 97 09/06/16 04:29 98.0 77 18 120/77 98 09/06/16 00:29 97.3 64 14 117/68 97 09/05/16 20:29 99.1 71 16 129/73 97 09/05/16 20:00 67 09/05/16 17:59 95 09/05/16 16:15 98.1 65 18 133/65 95 09/05/16 12:14 98.3 82 18 147/72 96 I/O 09/05/16 09/05/16 09/05/16 09/06/16 09/06/16 09/06/16 07:00 15:00 23:00 07:00 15:00 23:00 Intake Total 240 ml 850 ml Output Total 600 ml 1800 ml Balance -360 ml -950 ml Intake Oral 240 ml 850 ml Output Urine Total 600 ml 1800 ml # Voids 1 1 # Bowel Movements 0 Result Diagram: 09/06/16 0652 09/06/16 0652 Objective Remarks GENERAL: This is a well-nourished, well-developed patient, in no apparent distress. SKIN: No rashes, warm and dry HEAD: Atraumatic. Normocephalic. EYES: Pupils equal round and reactive. Extraocular motions intact. No scleral icterus. ENT: Nose without bleeding, or drainage, Airway patent. NECK: Trachea midline. Supple CARDIOVASCULAR: Regular rate and rhythm without murmurs, gallops, or rubs. RESPIRATORY: Fair air entry bilaterally. No wheezes, rales, or rhonchi. GASTROINTESTINAL: Abdomen soft, non-tender, nondistended. Positive bowel sounds MUSCULOSKELETAL: Extremities without clubbing, cyanosis, or edema. Pedal pulses appreciated NEUROLOGICAL: Awake and alert. Moves all extremity. Normal speech.no focal neurological deficit A/P Problem List: (1) Sepsis ICD Code: A41.9 Status: Acute (2) Bacteremia due to Gram-negative bacteria ICD Code: R78.81 Status: Acute (3) UTI (urinary tract infection) ICD Code: N39.0 Status: Acute (4) Elevated troponin I measurement ICD Code: R74.8 Status: Acute (5) Acute systolic congestive heart failure ICD Code: I50.21 Status: Acute (6) Renal insufficiency ICD Code: N28.9 Status: Acute (7) Atrial fibrillation ICD Code: I48.91 Status: Chronic (8) Hypokalemia ICD Code: E87.6 Status: Acute Assessment and Plan 09/04/16: Positive tumor markers, CT abdomen and pelvic reviewed personally by me confirmed abdominal mass, will consult medical oncologist 09/05/16:D/W insurance claims processor Dr. Ngo appreciate his input, increased tumor marker of no major significance at this point however we need to rule out to phyochromocytoma, working on 24-hour urine metanephrine 71 year-old female with 09/06/16: Discussed with Dr. Ngo is okay to discharge patient and forward the result of the 24-hour metanephrine urine level to her physician in her home town 1-Sepsis: Resolved Likely secondary to UTI. 3-Jvkskldata-Kdkwmcyzbtt coli:+4 BC gram-negative rods, repeat culture NTD and appreciate input from infectious disease specialist. Continue with Rocephin IV . Okay to discharge if repeat blood culture negative 2-3 days 9-OZC-Esrmrqvkijm coli: Currently on Rocephin IV 4-Elevated troponin I: Likely secondary to infectious process. Lexiscan stress test ruled out ischemia. Urology consult 5-History of atrial fibrillation: Continue amiodarone. Not on any oral anticoagulation secondary to previous history of intracranial Hemorrhage. Telemetry monitoring 6-Acute systolic CHF: 2-D echo with EF 45-50%, continue Bumex IV and continue with JAZMIN inhibitor. Will start Lasix 20 mg by mouth daily 09/04/16 and discontinue Bumex today 7-Diabetes type 2: Currently on long-acting basal insulin, sliding-scale insulin and hemoglobin A1c pending 8-Hyperlipidemia: Continue statin 9-Hypokalemia: Give again Potassium 60meQ x 1 now 10-Acute renal failure: monitor BUN and creatinine. Avoid all nephrotoxic drugs 11-Atrial fibrillation: Currently rate controlled, continue amiodarone 12-Abdominal mass: Abdomen NOTED AND REVIEW WITH FINDING OF 2.9 cm hypoechoic solid mass in the right retroperitoneum; likely adrenal mass. CT abdomen/ pelvis reviewed as above positive mass. tumor marker AFP, CEA and CA125 all positive and above normal limits, collagen consulted, no major significance of the tumor marker, however rule out pheochromocytoma 13-DVT prophylaxis: Lovenox Problem Qualifiers (1) Sepsis: Qualified Code: A41.51 - Sepsis due to Escherichia coli (2) UTI (urinary tract infection): Qualified Code: N30.00 - Acute cystitis without hematuria Sean Domínguez MD Sep 06, 2016 12:10
[2016-09-06 16:00] VITALS: BP 118/65; PULSE 69; RESP 19; TEMP 97; O2SAT 97
[2016-09-06] MEDS ORDERED: POTA20TA5 PO (18:34)
[2016-09-06] MEDS ORDERED: FURO20TA PO (18:34)
[2016-09-06] MEDS ORDERED: LEVA750T PO (18:34)
--- NOTE | 2016-09-06 18:37 | HHI.DS ---
Discharge Summary Admission Date Aug 31, 2016 at 21:00 Discharge Date: Sep 06, 2016 Admitting Diagnosis UTI. Sepsis. Hyponatremia. Hypokalemia. Renal sufficiency. Elevated (1) Sepsis ICD Code: A41.9 (2) Bacteremia due to Gram-negative bacteria ICD Code: R78.81 (3) UTI (urinary tract infection) ICD Code: N39.0 (4) Elevated troponin I measurement ICD Code: R74.8 (5) Acute systolic congestive heart failure ICD Code: I50.21 (6) Renal insufficiency ICD Code: N28.9 (7) Atrial fibrillation ICD Code: I48.91 (8) Hypokalemia ICD Code: E87.6 Procedures See below Brief History - From Admission 71 year-old female with a history of diabetes, hyperlipidemia, hypertension, atrial fibrillation presented to the ED yesterday for evaluation of 1 week history of generalized fatigue, malaise and poor appetite 1 week duration. Patient also reported mild intermittent dry cough as well as nausea and vomiting. She denies any chest pain and has no GI bleed. She has a history of atrial fibrillation however secondary to recent intracranial hemorrhage and she is no longer on oral anticoagulation. Patient was found to have elevated troponin I for which cardiology was consulted. Although patient denies any dysuria or urinary frequency she has abnormal UA CBC/BMP: 09/06/16 0652 09/06/16 0652 Significant Findings Laboratory Tests Test 09/04/16 09/05/16 09/06/16 08:00 12:05 06:52 White Blood Count 14.1 TH/MM3 13.6 TH/MM3 13.0 TH/MM3 (4.0-11.0) (4.0-11.0) (4.0-11.0) Neutrophils % (Manual) 79 % (16-70) Neutrophils # (Manual) 11.3 TH/MM3 (1.8-7.7) Platelet Morphology Comment CLUMPED (NORMAL) Blood Urea Nitrogen 33 MG/DL (7-18) 31 MG/DL (7-18) 29 MG/DL (7-18) Creatinine 1.70 MG/DL 1.70 MG/DL 1.60 MG/DL (0.50-1.00) (0.50-1.00) (0.50-1.00) Estimat Glomerular Filtration 30 ML/MIN (>89) 30 ML/MIN (>89) 32 ML/MIN (>89) Rate Neutrophils (%) (Auto) 80.9 % 82.3 % (16.0-70.0) (16.0-70.0) Lymphocytes (%) (Auto) 7.2 % 8.7 % (9.0-44.0) (9.0-44.0) Monocytes (%) (Auto) 8.9 % (0.0-8.0) 8.7 % (0.0-8.0) Basophils (%) (Auto) 2.7 % (0.0-2.0) Neutrophils # (Auto) 11.0 TH/MM3 10.8 TH/MM3 (1.8-7.7) (1.8-7.7) Monocytes # (Auto) 1.2 TH/MM3 1.1 TH/MM3 (0-0.9) (0-0.9) Basophils # (Auto) 0.4 TH/MM3 (0-0.2) Random Glucose 194 MG/DL (74-106) Rouleau PRESENT (NORMAL) PE at Discharge GENERAL: This is a well-nourished, well-developed patient, in no apparent distress. SKIN: No rashes, warm and dry HEAD: Atraumatic. Normocephalic. EYES: Pupils equal round and reactive. Extraocular motions intact. No scleral icterus. ENT: Nose without bleeding, or drainage, Airway patent. NECK: Trachea midline. Supple CARDIOVASCULAR: Regular rate and rhythm without murmurs, gallops, or rubs. RESPIRATORY: Fair air entry bilaterally. No wheezes, rales, or rhonchi. GASTROINTESTINAL: Abdomen soft, non-tender, nondistended. Positive bowel sounds MUSCULOSKELETAL: Extremities without clubbing, cyanosis, or edema. Pedal pulses appreciated NEUROLOGICAL: Awake and alert. Moves all extremity. Normal speech.no focal neurological deficit Hospital Course 71 years old female admitted with secondary to UTI. Found to have BacteremiaEscherichia coli:+4 BC gramnegative rods, repeat culture negative and , ID consulted eat. Placed on Rocephin IV . Okay to discharge if repeat blood culture negative 2-3 days on Levaquin for 14 days Patient had troponin I: Likely secondary to infectious process. Lexiscan stress test ruled out ischemia. Cardiology consulted History of atrial fibrillation: Continue amiodarone. Not on any oral anticoagulation secondary to previous history of intracranial Hemorrhage. Telemetry monitoring Acute systolic CHF: 2D echo with EF 45-50%, continue Bumex IV and JAZMIN inhibitor. Will start Lasix 20 mg by mouth daily 09/04/16 and discontinue Bumex today Diabetes type 2: Currently on longacting basal insulin, slidingscale insulin and hemoglobin A1c pending Hyperlipidemia: Continue statin Hypokalemia: Give again Potassium 60meQ x 1 now Acute renal failure: monitor BUN and creatinine. 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 CT abdomen/ pelvis reviewed as above positive mass. tumor marker AFP, CEA and CA125 all positive and above normal limits, collagen consulted, no major significance of the tumor marker, however rule out pheochromocytoma DVT prophylaxis: Lovenox On 09/04/16: Positive tumor markers, CT abdomen and pelvic reviewed personally by me confirmed abdominal mass, will consult medical oncologist On 09/05/16:D/W fuel management handler Dr. Ngo appreciate his input, increased tumor marker of no major significance at this point however we need to rule out to phyochromocytoma, working on 24-hour urine metanephrine 71 year-old female with On 09/06/16: Discussed with Dr. Ngo is okay to discharge patient and forward the result of the 24-hour metanephrine urine level to her physician in [id number] encounter performed with the patient on discharge day, as well as physical exam, summary of hospitalization course and postdischarge plan has been D/W the patient. D/W nurse D/W case packer and sealer. Discharge medications reviewed and printed and signed, post discharge follow up visit with PCP and other specialist as well as Brief hospital course and discharge summary has been placed. Pt Condition on Discharge: Good Discharge Disposition: Discharge Home Discharge Time: > 30 minutes Discharge Instructions DIET: Follow Instructions for: Heart Healthy Diet Activities you can perform: Weight Bearing as Kira New Medications: Furosemide (Furosemide) 20 Mg Tab 20 MG PO DAILY . #30 TAB Levofloxacin (Levaquin) 750 Mg Tab 750 MG PO Q48H bacteremia #11 TAB Potassium Chloride Microencaps (Potassium Chloride Microencaps) 20 Meq Tab 10 MEQ PO DAILY replacement #30 TAB Continued Medications: Amiodarone (Amiodarone) 200 Mg Tab 200 MG PO DAILY Regulate Heart Beat #30 Ref 0 TAB Aspirin (Aspirin) 81 Mg Chew 81 MG CHEW DAILY Ref 0 TAB Atorvastatin (Atorvastatin) 20 Mg Tab 20 MG PO HS Cholesterol Management #30 Ref 0 TAB Chlorthalidone (Chlorthalidone) 25 Mg Tab 25 MG PO DAILY Ref 0 TAB Insulin Glargine Inj (Lantus Inj) 1,000 Unit/10 Ml Vial 18 UNITS SQ HS Blood Sugar Management Ref 0 VIAL Lisinopril (Lisinopril) 40 Mg Tab 40 MG PO DAILY Blood Pressure Management #30 Ref 0 TAB Sean Domínguez MD Sep 06, 2016 18:37
[2016-09-10 16:42] LABS: METANEPHRINE 24 COLLECTION DUR 24 h (())
== END 2016-09-06 19:30 | disposition home or self-care (01) | DRG 871 ==
LOC: PHED 19:02 → PHEDA 21:00 → PH3A 09-01 00:59
PROVIDERS: ADMIT Hospitalist; ATTEND Hospitalist
DX: A41.51 Sepsis due to Escherichia coli [E. coli] (principal); I50.21 Acute systolic (congestive) heart failure; N17.9 Acute kidney failure, unspecified; I48.91 Unspecified atrial fibrillation; N39.0 Urinary tract infection, site not specified; E87.1 Hypo-osmolality and hyponatremia; E11.65 Type 2 diabetes mellitus with hyperglycemia; E86.0 Dehydration; E87.5 Hyperkalemia; E87.6 Hypokalemia; E27.9 Disorder of adrenal gland, unspecified; B96.20 Unspecified Escherichia coli [E. coli] as the cause of diseases classified elsewhere; I11.0 Hypertensive heart disease with heart failure; Z79.4 Long term (current) use of insulin; Z86.73 Personal history of transient ischemic attack (TIA), and cerebral infarction without residual deficits; Z87.891 Personal history of nicotine dependence
CPT/HCPCS: 71010; 71250; 74176; 76700; 78452; 80048; 80053; 81001; 82010; 82105; 82378; 82550; 82948; 83036; 83605; 83835; 83880; 84443; 84484; 85007; 85025; 85027; 85610; 85730; 86301; 86304; 87040; 87077; 87086; 87186; 87205; 87804; 93005; 93017; 93306; 96360; A9502; J0696; J1650; J1815; J2785; J3370; J3480; J7030; J7050; P9612